=== PATIENT | male | born 1945 | race Caucasian/White ===

== ENCOUNTER 2017-05-05 14:57 | Inpatient (IN) | payer MEDICARE ==
[~2017-05-05] VITALS: Ht 175.3 cm; Wt 103.2 kg
--- NOTE | 2017-05-05 15:08 | NUR ---
The patient, HARI COLORADO, 71 y/o, M admitted by SHARON STAHL MD, was given written information regarding hospital policies, unit procedures and contact persons. Patient admitted to room [address] Stahl's office and arrived at approximately 1500. Valuables were checked and left with patient. Vital signs assessed and IV placed.
[2017-05-05 15:33] VITALS: BP 136/70
[2017-05-05] MEDS ORDERED: ASPI325T8 PO (16:23)
[2017-05-05] MEDS ORDERED: OMEP20CA9 PO (16:23)
[2017-05-05] MEDS ORDERED: NITR1PAT3 TD (16:23)
[2017-05-05] MEDS ORDERED: MULT1TAB13 PO (16:23)
[2017-05-05] MEDS ORDERED: NIAC500T PO (16:23)
[2017-05-05] MEDS ORDERED: ACET650T89 PO (16:23)
[2017-05-05] MEDS ORDERED: FURO40TA4 PO (16:23)
[2017-05-05] MEDS ORDERED: OMEG1CAP38 PO (16:23)
[2017-05-05] MEDS ORDERED: LOSA50TA6 PO (16:23)
[2017-05-05] MEDS ORDERED: NAPR-695 PO ×2 (16:23)
[2017-05-05] MEDS ORDERED: CHOL10003 PO (16:23)
[2017-05-05] MEDS ORDERED: SIMV80TA3 PO (16:23)
[2017-05-05 16:53] LABS: BASO # 0.1 x10^3/uL (0.0-0.2); BASO % 1 % (0-3); EOS # 0.2 x10^3/uL (0.0-0.7); EOS % 2 % (0-3); HEMOGLOBIN 14.6 g/dL (13.0-17.5); LYMPH # 2.2 x10^3/uL (1.0-4.8); LYMPH % 34 % (24-48); MEAN CORPUSCULAR HEMOGLOBIN 30 pg (25-35); MEAN CORPUSCULAR HGB CONC 33 g/dL (31-37); MEAN CORPUSCULAR VOLUME 91 fL (79-100); MONO # 0.7 x10^3/uL (0.0-1.1); MONO % 11 % (0-9); NEUT # 3.4 x10^3uL (1.8-7.7); NEUT % 52 % (31-73); PLATELET COUNT 166 x10^3/uL (140-400); RED BLOOD COUNT 4.83 x10^6/uL (4.30-5.70); RED CELL DISTRIBUTION WIDTH 13.6 % (11.5-14.5); WHITE BLOOD COUNT 6.5 x10^3/uL (4.0-11.0)
[2017-05-05 16:58] LABS: ALBUMIN 3.9 g/dL (3.4-5.0); ALBUMIN/GLOBULIN RATIO 1.3 (1.0-1.7); CREATININE 1.1 mg/dL (0.7-1.3); GFR 65.6; POTASSIUM 4.2 mmol/L (3.5-5.1); TOTAL BILIRUBIN 0.3 mg/dL (0.2-1.0); TOTAL PROTEIN 6.9 g/dL (6.4-8.2)
[2017-05-05 18:04] LABS: BILIRUBIN,URINE NEG (NEG); CLARITY,URINE CLEAR; COLOR,URINE STRAW; GLUCOSE,URINE NEG (NEG); NITRITE,URINE NEG (NEG); UROBILINOGEN,URINE 0.2 mg/dL (0.2 mg/dL)
[2017-05-05 18:05] LABS: BACTERIA,URINE 0 /HPF (0-FEW); WBC,URINE 0 /HPF (0-4)
[2017-05-05] MEDS ORDERED: ZOLPIDEM 5 MG TABLET. PO PRN (18:15)
[2017-05-05] MEDS ORDERED: ACETAMINOPHEN 325 MG TABLET PO PRN (18:45)
[2017-05-05 19:32] VITALS: BP 137/78
[2017-05-05] MEDS: OMEGA-3 FATTY ACIDS/FISH OIL 1,000 MG CAPSULE. PO SCH (20:40)
[2017-05-05] MEDS: FUROSEMIDE 40 MG/4 ML VIAL IVP SCH (20:40)
[2017-05-05] MEDS: NIACIN ER 500 MG TABLET.ER PO SCH (20:40)
[2017-05-05] MEDS ORDERED: SIMVASTATIN 40 MG TABLET. PO SCH (21:00)
[2017-05-05] MEDS ORDERED: ASPIRIN 325 MG TABLET PO SCH (21:00)
[2017-05-05 22:50] VITALS: BP 112/60
[2017-05-06 05:00] VITALS: BP 135/58
[2017-05-06 06:15] LABS: BASO # 0.1 x10^3/uL (0.0-0.2); BASO % 1 % (0-3); EOS # 0.2 x10^3/uL (0.0-0.7); EOS % 4 % (0-3); HEMATOCRIT 44.2 % (39.0-53.0); HEMOGLOBIN 14.7 g/dL (13.0-17.5); LYMPH # 2.4 x10^3/uL (1.0-4.8); LYMPH % 36 % (24-48); MEAN CORPUSCULAR HEMOGLOBIN 30 pg (25-35); MEAN CORPUSCULAR HGB CONC 33 g/dL (31-37); MEAN CORPUSCULAR VOLUME 91 fL (79-100); MONO # 0.8 x10^3/uL (0.0-1.1); MONO % 12 % (0-9); NEUT # 3.1 x10^3uL (1.8-7.7); NEUT % 47 % (31-73); PLATELET COUNT 159 x10^3/uL (140-400); RED BLOOD COUNT 4.88 x10^6/uL (4.30-5.70); RED CELL DISTRIBUTION WIDTH 13.3 % (11.5-14.5); WHITE BLOOD COUNT 6.6 x10^3/uL (4.0-11.0)
[2017-05-06 06:17] LABS: CALCIUM 10.1 mg/dL (8.5-10.1); CREATININE 1.1 mg/dL (0.7-1.3); GFR 65.6; POTASSIUM 4.8 mmol/L (3.5-5.1)
[2017-05-06] MEDS: NIACIN ER 500 MG TABLET.ER PO SCH (08:49)
[2017-05-06] MEDS: OMEGA-3 FATTY ACIDS/FISH OIL 1,000 MG CAPSULE. PO SCH (08:49)
[2017-05-06] MEDS: FUROSEMIDE 40 MG/4 ML VIAL IVP SCH (08:50)
[2017-05-06] MEDS ORDERED: NITROGLYCERIN 0.1MG/HR PATCH. TD SCH (09:00)
[2017-05-06] MEDS ORDERED: PANTOPRAZOLE 40 MG TABLET. PO SCH (09:00)
[2017-05-06] MEDS ORDERED: PNEUMOC CONJ VACC 23-VALENT 0.5 ML VIAL. VAX IM ONE (09:00)
[2017-05-06] MEDS ORDERED: LOSARTAN 50 MG TABLET. PO SCH (09:00)
[2017-05-06] MEDS ORDERED: FUROSEMIDE 40 MG/4 ML VIAL IVP SCH (09:00)
[2017-05-06 10:48] VITALS: BP 153/84
--- NOTE | 2017-05-06 13:57 | CARD ---
APPROVED REPORT EXAM: Two-dimensional and M-mode echocardiogram with Doppler and color Doppler. Other Information Quality : GoodHR: 76bpm Rhythm : NSR INDICATION Congestive Heart Failure RISK FACTORS Obesity 2D DIMENSIONS RVDd3.4 (2.9-3.5cm)Left Atrium(2D)3.6 (1.6-4.0cm) IVSd0.8 (0.7-1.1cm)Aortic Root(2D)2.8 (2.0-3.7cm) LVDd4.6 (3.9-5.9cm)LVOT Diameter2.2 (1.8-2.4cm) PWd0.8 (0.7-1.1cm)LVDs2.8 (2.5-4.0cm) FS (%) 39.4 %SV66.7 ml Aortic Valve AoV Peak Amarjit.177.6cm/sAoV VTI32.3cm AO Peak GR.12.6mmHgLVOT Peak Amarjit.162.7cm/s LVOT VTI 34.60cmAO Mean GR.8mmHg DENIZ (VMAX)3.89wg0BWY (VTI)4.17cm2 Mitral Valve MV E Jqcqziwm77.3cm/sMV E Peak Gr.4mmHg MV DECEL [id number] A Eugbzsim28.8cm/s MV E Mean Gr.2mmHgE/A Ratio0.8 MV A [id number] Pulmonary Valve PV Peak Ukbhgyra321.4cm/sPV Peak Grad.10mmHg Pulmonary Vein S1 Unthlvnn14.7cm/sD2 Xtybjvsq82.4cm/s LEFT VENTRICLE The left ventricle is normal size. There is borderline concentric left ventricular hypertrophy. The l eft ventricular systolic function is normal and the ejection fraction is within normal range. The Eje ction Fraction is 65-70%. There is normal LV segmental wall motion. Transmitral Doppler flow pattern is Grade I-abnormal relaxation pattern. RIGHT VENTRICLE The right ventricle is normal size. There is normal right ventricular wall thickness. The right ventr icular systolic function is normal. ATRIA The left atrium size is normal. The right atrium size is normal. The interatrial septum is intact wit h no evidence for an atrial septal defect or patent foramen ovale as noted on 2-D or Doppler imaging. AORTIC VALVE The aortic valve is mildly sclerotic. The aortic valve is trileaflet. Doppler and Color Flow revealed no significant aortic regurgitation. There is no significant aortic valvular stenosis. MITRAL VALVE Mitral annular calcification is mild. The mitral valve leaflets are thickened. There is no evidence o f mitral valve prolapse. There is no mitral valve stenosis. Doppler and Color Flow revealed trace wil ral valve regurgitation. TRICUSPID VALVE Doppler and Color Flow revealed trace tricuspid valve regurgitation. PULMONIC VALVE The pulmonic valve is not well visualized but appears to open well. No evidence of pulmonic valve reg urgitation or stenosis by color and spectral Doppler. GREAT VESSELS The aortic root is normal in size. The ascending aorta is normal in size. The pulmonary artery is nor mal. The IVC is normal in size and collapses >50% with inspiration. PERICARDIAL EFFUSION There is no evidence of significant pericardial effusion. Critical Notification Critical Value: No <Conclusion> The left ventricle is normal size. The left ventricular systolic function is normal and the ejection fraction is within normal range. The Ejection Fraction is 65-70%. There is borderline concentric left ventricular hypertrophy. There is no significant aortic valvular stenosis. Doppler and Color Flow revealed no significant aortic regurgitation. Doppler and Color Flow revealed trace mitral valve regurgitation. Doppler and Color Flow revealed trace tricuspid valve regurgitation. There is no evidence of significant pericardial effusion.
[2017-05-06 14:50] VITALS: BP 132/80
== END 2017-05-06 15:39 | disposition home or self-care (01) | DRG 293 ==
LOC: 1 SOUTH 14:57
PROVIDERS: ADMIT Family Medicine; ATTEND Family Medicine
DX: I50.43 Acute on chronic combined systolic (congestive) and diastolic (congestive) heart failure (principal); G47.30 Sleep apnea, unspecified; I25.10 Atherosclerotic heart disease of native coronary artery without angina pectoris; Z79.899 Other long term (current) drug therapy; Z79.82 Long term (current) use of aspirin; Z95.5 Presence of coronary angioplasty implant and graft; Z91.048 Other nonmedicinal substance allergy status; Z80.9 Family history of malignant neoplasm, unspecified
CPT/HCPCS: 36415; 80048; 80053; 81001; 82550; 83880; 84484; 85027; 85379; 90732; 93306; J1940

== ENCOUNTER → 2017-09-02 | Outpatient (CLI) | payer MEDICARE ==
[~2017-09-02] MED LIST: ACET650T89 PO; ASPI325T8 PO; CHOL10003 PO; FURO40TA4 PO; LOSA50TA6 PO; MULT1TAB13 PO; NAPR-695 PO; NIAC500T PO; NITR1PAT3 TD; OMEG1CAP38 PO; OMEP20CA9 PO; SIMV80TA3 PO
[2017-09-02 13:37] LABS: BASO # 0.1 x10^3/uL (0.0-0.2); BASO % 1 % (0-3); EOS # 0.2 x10^3/uL (0.0-0.7); EOS % 2 % (0-3); HEMOGLOBIN 15.5 g/dL (13.0-17.5); LYMPH # 2.4 x10^3/uL (1.0-4.8); LYMPH % 26 % (24-48); MEAN CORPUSCULAR HEMOGLOBIN 31 pg (25-35); MEAN CORPUSCULAR HGB CONC 34 g/dL (31-37); MEAN CORPUSCULAR VOLUME 90 fL (79-100); MONO # 0.8 x10^3/uL (0.0-1.1); MONO % 9 % (0-9); NEUT # 5.9 x10^3uL (1.8-7.7); NEUT % 63 % (31-73); PLATELET COUNT 204 x10^3/uL (140-400); RED BLOOD COUNT 5.02 x10^6/uL (4.30-5.70); RED CELL DISTRIBUTION WIDTH 13.5 % (11.5-14.5); WHITE BLOOD COUNT 9.2 x10^3/uL (4.0-11.0)
[2017-09-02 13:41] LABS: CALCIUM 10.3 mg/dL (8.5-10.1); GFR 73.2; POTASSIUM 4.1 mmol/L (3.5-5.1)
== END | disposition home or self-care (01) ==
LOC: LAB 12:57
PROVIDERS: ATTEND Family Medicine
DX: R04.0 Epistaxis (principal)
CPT/HCPCS: 36415; 80048; 85025; 85610

== ENCOUNTER 2021-05-06 17:50 | Inpatient (IN) | payer MEDICARE ==
[~2021-05-06] VITALS: Ht 172.7 cm; Wt 86.2 kg
[~2021-05-06 17:50] MED LIST changes: +ACET650T6 PO; -ACET650T89 PO; -LOSA50TA6 PO; +LOSA50TA86 PO; +OMEP20CA16 PO; -OMEP20CA9 PO; +SIMV80TA17 PO; -SIMV80TA3 PO
[2021-05-06 18:34] VITALS: BP 117/81
[2021-05-06] MEDS ORDERED: ZOLPIDEM 5 MG TABLET. PO PRN (18:45)
[2021-05-06] MEDS ORDERED: ACETAMINOPHEN 500 MG TABLET PO PRN (18:45)
[2021-05-06] MEDS ORDERED: FUROSEMIDE 20 MG/2 ML VIAL IVP ONE (18:45)
[2021-05-06] MEDS ORDERED: ACETAMINOPHEN 325 MG TABLET PO PRN (18:45)
[2021-05-06 19:03] LABS: BASO # 0.1 x10^3/uL (0.0-0.2); BASO % 1 % (0-3); EOS # 0.4 x10^3/uL (0.0-0.7); EOS % 4 % (0-3); HEMATOCRIT 36.4 % (39.0-53.0); HEMOGLOBIN 11.7 g/dL (13.0-17.5); LYMPH # 1.5 x10^3/uL (1.0-4.8); LYMPH % 15 % (24-48); MEAN CORPUSCULAR HEMOGLOBIN 26 pg (25-35); MEAN CORPUSCULAR HGB CONC 32 g/dL (31-37); MEAN CORPUSCULAR VOLUME 80 fL (79-100); MONO % 10 % (0-9); NEUT # 7.2 x10^3uL (1.8-7.7); NEUT % 70 % (31-73); PLATELET COUNT 324 x10^3/uL (140-400); RED BLOOD COUNT 4.52 x10^6/uL (4.30-5.70); RED CELL DISTRIBUTION WIDTH 15.1 % (11.5-14.5); WHITE BLOOD COUNT 10.2 x10^3/uL (4.0-11.0)
[2021-05-06 19:22] LABS: ALBUMIN 2.7 g/dL (3.4-5.0); ALBUMIN/GLOBULIN RATIO 0.7 (1.0-1.7); CALCIUM 9.8 mg/dL (8.5-10.1); CREATININE 0.9 mg/dL (0.7-1.3); GFR 81.8; MAGNESIUM 2.1 mg/dL (1.8-2.4); POTASSIUM 4.1 mmol/L (3.5-5.1); TOTAL BILIRUBIN 0.2 mg/dL (0.2-1.0); TOTAL PROTEIN 6.7 g/dL (6.4-8.2)
--- NOTE | 2021-05-06 20:12 | RAD ---
PQRS Compliance Statement: One or more of the following individualized dose reduction techniques were utilized for this examinat ion: 1. Automated exposure control 2. Adjustment of the mA and/or kV according to patient size 3. Use of iterative reconstruction technique CT THORAX WO 05/06/2021 7:00 PM Indication: Shortness of breath COMPARISON: None available. TECHNIQUE: Multiple axial CT images of the chest were obtained without intravenous contrast. Coronal and sagittal reformats are provided. FINDINGS: Ascending thoracic aorta measures 4.1 cm. Heart size within normal limits. Three-vessel coronary monroe ry vascular calcific effusions are present. Thyroid gland is normal in appearance. Limited evaluation for hilar lymphadenopathy without intravenous contrast. No pathologically enlarged mediastinal or ax illary lymph nodes. There is a moderate to large left pleural effusion with atelectasis of the inferi or lingula and left lower lobe. There is minimal aeration left upper lobe. No pneumothorax. There is a 3 mm subpleural solid noncalcified pulmonary nodule in the right lower lobe (series 2, image 37). U pper abdomen is normal in appearance. No suspicious osseous abnormality is identified. Anterior cervi brandon discectomy and fusion hardware is partially profiled. IMPRESSION: Moderate to large left pleural effusion with adjacent inferior lingula atelectasis and left lower lob e atelectasis or infiltrate. 3 mm solid subpleural nodule in the right lower lobe. Fleischner guidelines for incidentally detected pulmonary nodules suggests no routine follow-up for low risk patients and optional CT at 12 months f or high risk patients with solid noncalcified pulmonary nodules less than 6 mm in size. Ectasia of the ascending thoracic aorta measures 4.1 cm. Electronically signed by: Gay Jessica MD (05/06/2021 8:09 PM) [facility]
[2021-05-06] MEDS: ASPIRIN 325 MG TABLET PO SCH (20:18)
[2021-05-06 22:13] LABS: BILIRUBIN,URINE NEG (NEG); CLARITY,URINE CLEAR; COLOR,URINE STRAW; GLUCOSE,URINE NEG (NEG)
[2021-05-06 22:14] LABS: BACTERIA,URINE 0 /HPF (0-FEW); NITRITE,URINE NEG (NEG); SQUAMOUS EPITHELIAL CELL,UR FEW /LPF; UROBILINOGEN,URINE 0.2 mg/dL (0.2 mg/dL); WBC,URINE 0 /HPF (0-4)
[2021-05-07 06:10] VITALS: BP 126/77
[2021-05-07] MEDS ORDERED: DEXTROSE 50% 25 GM / 50ML DISP.SYRIN. IV PRN (07:45)
[2021-05-07] MEDS: LOSARTAN 50 MG TABLET. PO SCH (08:27)
[2021-05-07] MEDS: CHOLECALCIFEROL (VITAMIN D3) 1,000 UNIT TABLET PO SCH (08:27)
[2021-05-07] MEDS: PANTOPRAZOLE 40 MG TABLET. PO SCH (08:27)
[2021-05-07] MEDS: NITROGLYCERIN 0.1MG/HR PATCH. TD SCH (08:30)
[2021-05-07] MEDS: INSULIN LISPRO 300 UNITS/3 ML VIAL. SQ SCH ×3 (08:31→16:59)
[2021-05-07] MEDS ORDERED: FUROSEMIDE 20 MG/2 ML VIAL IVP SCH ×2 (09:00)
[2021-05-07] MEDS ORDERED: FUROSEMIDE 20 MG/2 ML VIAL IVP ONE (09:30)
[2021-05-07 10:28] VITALS: BP 148/82
[2021-05-07 15:05] VITALS: BP 128/75
[2021-05-07 19:00] VITALS: BP 125/81
[2021-05-07] MEDS: ASPIRIN 325 MG TABLET PO SCH (20:54)
[2021-05-07 23:00] VITALS: BP 137/79
[2021-05-07 23:22] LABS: HEMOGLOBIN A1C 7.2 % (4.8-5.6)
[2021-05-08 05:52] VITALS: BP 122/83
[2021-05-08] MEDS: INSULIN LISPRO 300 UNITS/3 ML VIAL. SQ SCH ×3 (08:00→17:58)
[2021-05-08] MEDS: LACTOBACILLUS RHAMNOSUS GG 1 CAPSULE. PO SCH ×2 (09:25→21:09)
[2021-05-08] MEDS: PANTOPRAZOLE 40 MG TABLET. PO SCH (09:25)
[2021-05-08] MEDS: CHOLECALCIFEROL (VITAMIN D3) 1,000 UNIT TABLET PO SCH (09:25)
[2021-05-08] MEDS: LOSARTAN 50 MG TABLET. PO SCH (09:25)
[2021-05-08] MEDS: NITROGLYCERIN 0.1MG/HR PATCH. TD SCH (09:26)
[2021-05-08] MEDS: FUROSEMIDE 20 MG/2 ML VIAL IVP SCH (09:27)
[2021-05-08 11:43] VITALS: BP 121/78
[2021-05-08 14:37] VITALS: BP 113/70
[2021-05-08 18:53] VITALS: BP 117/74
[2021-05-08] MEDS: ASPIRIN 325 MG TABLET PO SCH (21:09)
[2021-05-08 22:54] VITALS: BP 109/69
--- NOTE | 2021-05-09 00:36 | PN ---
SUBJECTIVE: A 75-year-old male who came in with a large left pleural effusion, difficulty breathing and elevated temperature, continues to run low-grade temperature about 99.7, pulse upwards of close to 100, blood pressure 125/80, respiratory 18, only 91% on room air and that is without exertion. The patient otherwise seems to be doing a little bit better, but still coughing, feels heaviness in that left side of his chest. Blood sugars are being monitored carefully and continue on IV Lasix as well as IV antibiotic therapy. OBJECTIVE: LUNGS: Otherwise show good inflation on the right, but the left shows diminished breath sounds. CARDIOVASCULAR: Regular sinus rhythm. ABDOMEN: Otherwise protuberant. EXTREMITIES: No clubbing, cyanosis or edema. Continue on the IV Rocephin and make further evaluation on him as indicated once we get the tap done for thoracentesis. IMPRESSION: Left pleural effusion, probably infectious. Continue with IV antibiotic therapy and diuresis for now. BINTA/NELLA/LAYTON DR: Giacomo TID: [id number]
[2021-05-09 05:57] VITALS: BP 111/51
[2021-05-09] MEDS: INSULIN LISPRO 300 UNITS/3 ML VIAL. SQ SCH ×3 (08:00→16:51)
[2021-05-09] MEDS: FUROSEMIDE 20 MG/2 ML VIAL IVP SCH (08:24)
[2021-05-09] MEDS: PANTOPRAZOLE 40 MG TABLET. PO SCH (08:25)
[2021-05-09] MEDS: LOSARTAN 50 MG TABLET. PO SCH (08:25)
[2021-05-09] MEDS: CHOLECALCIFEROL (VITAMIN D3) 1,000 UNIT TABLET PO SCH (08:25)
[2021-05-09] MEDS: LACTOBACILLUS RHAMNOSUS GG 1 CAPSULE. PO SCH ×2 (08:25→20:34)
[2021-05-09] MEDS: NITROGLYCERIN 0.1MG/HR PATCH. TD SCH (08:27)
[2021-05-09 11:04] VITALS: BP 137/75
[2021-05-09 12:28] LABS: CALCIUM 9.7 mg/dL (8.5-10.1); CREATININE 0.9 mg/dL (0.7-1.3); GFR 81.8; POTASSIUM 3.9 mmol/L (3.5-5.1)
[2021-05-09 13:36] VITALS: BP 128/76
[2021-05-09] MEDS: METOPROLOL SUCC 24HR ER 25 MG TAB.ER.24H. PO SCH (13:37)
--- NOTE | 2021-05-09 13:41 | RAD ---
EXAM: PA and Lateral Views of the Chest DATE: 05/09/2021 12:30 PM INDICATION: Reason: effusion / Spl. Instructions: / History: COMPARISON: 05/06/2021 FINDINGS/ IMPRESSION: Large left pleural effusion. No pneumothorax. Left lung opacities likely atelectasis given the large left pleural effusion. Cardiomediastinal silhouette is likely stable. Electronically signed by: Marky Diaz MD (05/09/2021 1:39 PM) [facility]ICCO
[2021-05-09 14:41] VITALS: BP 113/69
[2021-05-09 18:50] VITALS: BP 117/71
[2021-05-09] MEDS: PROMETH/CODEINE 6.25/10MG 5 ML SYRUP. PO PRN (20:34)
[2021-05-09 23:00] VITALS: BP 110/64
[2021-05-10 05:36] VITALS: BP 116/75
[2021-05-10] MEDS: INSULIN LISPRO 300 UNITS/3 ML VIAL. SQ SCH ×3 (08:00→16:32)
[2021-05-10] MEDS: FUROSEMIDE 20 MG/2 ML VIAL IVP SCH (08:39)
[2021-05-10] MEDS: LACTOBACILLUS RHAMNOSUS GG 1 CAPSULE. PO SCH ×2 (08:39→20:04)
[2021-05-10] MEDS: CHOLECALCIFEROL (VITAMIN D3) 1,000 UNIT TABLET PO SCH (08:40)
[2021-05-10] MEDS: METOPROLOL SUCC 24HR ER 25 MG TAB.ER.24H. PO SCH (08:40)
[2021-05-10] MEDS: PANTOPRAZOLE 40 MG TABLET. PO SCH (08:40)
[2021-05-10] MEDS: LOSARTAN 50 MG TABLET. PO SCH (08:40)
[2021-05-10] MEDS: NITROGLYCERIN 0.1MG/HR PATCH. TD SCH (08:41)
[2021-05-10 10:35] VITALS: BP 121/71
--- NOTE | 2021-05-10 12:07 | PN ---
DATE: 05/09/2021 SUBJECTIVE: The patient came in with pleural effusion, shortness of breath and dyspnea. The patient seems to be doing a little bit better today. He has been diuresed vigorously with IV Lasix, also placed on IV antibiotic therapy because of his elevated temperature. The repeat chest x-ray shows a pleural effusion to be increasing in size and will try to be tapped up tomorrow and make further evaluation once that tap has been performed. Otherwise the patient is resting comfortably. OBJECTIVE: VITAL SIGNS: Blood pressure 140/70, respiratory rate 20, pulse 65, 97% on room air, 98.5 temperature. GENERAL: The patient is alert and oriented. LUNGS: Diminished, primarily on the left side. There is no air movement, although he is not struggling for air. No accessory muscle use, although he has have a marked decreased percussion on the left side. CARDIOVASCULAR: Regular sinus rhythm. ABDOMEN: Soft, nontender. EXTREMITIES: No clubbing, cyanosis. Trace edema. NEUROLOGIC: His speech is fluent, spontaneous, and appropriate throughout. BINTA/LOUIS/ZACHARY DR: Giacomo TID: [id number]
--- NOTE | 2021-05-10 13:07 | RAD ---
US THORACENTESIS LOCAL LEFT History:Reason: LEFT PL EFFUSION / Spl. Instructions: / History: Comparison: None Technique: After discussing the risk and benefits of the procedure, the patient signed a written cons ent form for ultrasound guided thoracentesis of left pleural effusion. Appropriate relevant laborator y findings were reviewed prior to the exam. Initial ultrasound examination of the left hemithorax dem onstrated the presence of a left pleural effusion. External skin site was prepped and draped in the u sual sterile fashion at the planned site of access. ChloraPrep was utilized for cleansing solution. 1 % percent lidocaine was utilized for local anesthesia. 5 Kazakh Yueh needle set was utilized to acces s the pleural effusion. Subsequently fluid was aspirated utilizing vacuum bottles. A total of approxi mately 1.5 liters of serosanguineous fluid removed. Catheter was removed. There were no immediate com plications. Findings: There was alan red pleural fluid. Impression: 1. Successful ultrasound-guided left thoracentesis without immediate complication. Electronically signed by: Maury Taylor DO (05/10/2021 1:05 PM) [id number]
[2021-05-10 14:55] VITALS: BP 120/73
[2021-05-10 18:49] VITALS: BP 125/75
[2021-05-10] MEDS: PROMETH/CODEINE 6.25/10MG 5 ML SYRUP. PO PRN (20:04)
--- NOTE | 2021-05-10 23:42 | PN ---
SUBJECTIVE: The patient is a 75-year-old male in with large left lobe pleural effusion. The patient had a successful thoracentesis, 1-1/2 liters of fluid taken off that lung. OBJECTIVE: VITAL SIGNS: Remain stable 120/70, respiratory rate 18, pulse 80, afebrile, 2 liters at 93%. The patient continues to be monitored. We will repeat chest x-ray to see how this has evolved and what other cultures and sensitivities on the chemistries from the fluid need to be evaluated as well as cell count and other parameters as indicated. IMPRESSION: Large left pleural effusion, pleurisy, type 2 diabetes. PLAN: As above. Continue on antibiotics for now until final cultures were obtained for now. BINTA/MANUELA DR: Giacomo TID: [id number]
[2021-05-11 00:11] VITALS: BP 132/81
[2021-05-11 06:01] VITALS: BP 110/60
--- NOTE | 2021-05-11 07:27 | EKG ---
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
[2021-05-11] MEDS: INSULIN LISPRO 300 UNITS/3 ML VIAL. SQ SCH ×3 (07:44→16:24)
[2021-05-11] MEDS: CHOLECALCIFEROL (VITAMIN D3) 1,000 UNIT TABLET PO SCH (08:02)
[2021-05-11] MEDS: LACTOBACILLUS RHAMNOSUS GG 1 CAPSULE. PO SCH (08:02)
[2021-05-11] MEDS: METOPROLOL SUCC 24HR ER 25 MG TAB.ER.24H. PO SCH (08:02)
[2021-05-11] MEDS: PANTOPRAZOLE 40 MG TABLET. PO SCH (08:02)
[2021-05-11] MEDS: NITROGLYCERIN 0.1MG/HR PATCH. TD SCH (08:03)
[2021-05-11] MEDS: FUROSEMIDE 20 MG/2 ML VIAL IVP SCH (08:04)
[2021-05-11] MEDS: LOSARTAN 50 MG TABLET. PO SCH (08:05)
[2021-05-11] MEDS: PROMETH/CODEINE 6.25/10MG 5 ML SYRUP. PO PRN (09:28)
--- NOTE | 2021-05-11 10:36 | RAD ---
EXAM: CHEST 2 VIEWS. HISTORY: Cough, pleural effusion. COMPARISON: 05/09/2021. FINDINGS: Frontal and lateral views of the chest are obtained. A moderate left pleural effusion is decreased since the prior study. There is no pneumothorax. There is atelectasis in the left greater than right bases. The inspiration is small. The heart is not enlar ged. There are atherosclerotic calcifications of the aorta. Changes of cervical fusion are noted. IMPRESSION: 1. A moderate left pleural effusion has decreased since the prior study. Electronically signed by: Dominguez Stratton MD (05/11/2021 10:33 AM) [id number]
[2021-05-11 10:55] VITALS: BP 121/66
[2021-05-11 14:43] VITALS: BP 105/67
--- NOTE | 2021-05-11 21:57 | PN ---
SUBJECTIVE: The patient is a 75-year-old gentleman came in with a pleural effusion, shortness of breath, and dyspnea. The patient is resting comfortably, although he had a 1 liter and a half of fluid taken off his left lung. The patient has a reoccurrence of that pleural effusion. The patient is still moderate amount. OBJECTIVE: VITAL SIGNS: Blood pressure 120/60, respiratory rate 20, pulse 83, afebrile, 92 on room air. GENERAL: The patient otherwise alert and oriented. LUNGS: Diminished. On the left, there is no movement of air, primarily from about snf down on the left lung. CVR exam has good movement of air. CARDIOVASCULAR: Regular sinus rhythm. ABDOMEN: Soft, protuberant. EXTREMITIES: No clubbing, cyanosis or edema. NEUROLOGIC: The patient alert and oriented x3. IMPRESSION AND PLAN: Recurrent pleural effusion. The cultures and workup on that fluid taken out yesterday are still pending, but because this fluid has reoccurred in a moderate amount, he is probably filling up again, be transferred for pulmonary consult down at [facility]. ROBEL COSTA: Giacomo TID: [id number]
--- NOTE | 2021-05-17 20:55 | DS ---
DATE OF DISCHARGE: 05/11/2021 HOSPITAL COURSE: A 75-year-old gentleman with left-sided chest pain, shortness of breath. The patient has been having problems with a recurrent pleural effusion. The patient also has pleurisy, type 2 diabetes, history of coronary artery disease. The patient had approximately a liter and a half of fluid drawn off and then began to have experience further buildup of the fluid. As a result of this, recurrence of the pleural effusion, the patient was sent to [facility] to be seen by Pulmonology and make further evaluation on him for the results of further testing as indicated. His white count was 10, hemoglobin 36, platelets 328. The patient's body source of the pleural effusion, glucose 126, total protein 4.5, albumin 2.6, LDH 272. Amylase 25 and creatinine of 0.8. The patient was stable at the time of discharge because there was no clinical transformation specialist available for further consultation. He was transferred down to [facility]. IMPRESSION: 1. Recurrent pleural effusion. 2. Dyspnea. 3. Chest pain. 4. Pleurisy. 5. Type 2 diabetes. 6. Morbid obesity. 7. Weight loss. DISPOSITION: The patient will be transferred via EMS as indicated above. ORTIZ DR: Giacomo TID: [id number]
== END 2021-05-11 15:49 | disposition short-term general hospital (02) | DRG 186 ==
LOC: 1 SOUTH 17:50
PROVIDERS: ADMIT Family Medicine; ATTEND Family Medicine
PROC: 0W9B3ZZ Drainage of Left Pleural Cavity, Percutaneous Approach (ICD-10-PCS; principal; 2021-05-10)
DX: J90 Pleural effusion, not elsewhere classified (principal); E43 Unspecified severe protein-calorie malnutrition; I25.10 Atherosclerotic heart disease of native coronary artery without angina pectoris; E11.9 Type 2 diabetes mellitus without complications; Z68.29 Body mass index [BMI] 29.0-29.9, adult; E66.01 Morbid (severe) obesity due to excess calories; Z98.61 Coronary angioplasty status; Z95.828 Presence of other vascular implants and grafts
CPT/HCPCS: 32555; 36415; 71046; 71250; 80048; 80053; 81001; 82042; 82150; 82550; 82570; 82945; 82947; 83036; 83615; 83735; 83880; 84157; 84484; 85025; 85049; 85610; 85730; 87071; 87075; 93005; J0696; J1815

== ENCOUNTER → 2021-05-31 | Outpatient (CLI) | payer MEDICARE ==
[2021-05-11 14:43] VITALS: BP 105/67
[2021-05-31 14:10] LABS: BASO # 0.1 x10^3/uL (0.0-0.2); BASO % 1 % (0-3); EOS # 0.3 x10^3/uL (0.0-0.7); EOS % 3 % (0-3); HEMATOCRIT 37.6 % (39.0-53.0); HEMOGLOBIN 11.9 g/dL (13.0-17.5); LYMPH # 1.8 x10^3/uL (1.0-4.8); LYMPH % 16 % (24-48); MEAN CORPUSCULAR HEMOGLOBIN 26 pg (25-35); MEAN CORPUSCULAR HGB CONC 32 g/dL (31-37); MEAN CORPUSCULAR VOLUME 81 fL (79-100); MONO # 1.3 x10^3/uL (0.0-1.1); MONO % 12 % (0-9); NEUT # 7.9 x10^3uL (1.8-7.7); NEUT % 69 % (31-73); PLATELET COUNT 339 x10^3/uL (140-400); RED BLOOD COUNT 4.64 x10^6/uL (4.30-5.70); RED CELL DISTRIBUTION WIDTH 15.6 % (11.5-14.5); WHITE BLOOD COUNT 11.5 x10^3/uL (4.0-11.0)
== END ==
LOC: LAB 12:26
PROVIDERS: ATTEND Family Medicine
DX: D62 Acute posthemorrhagic anemia (principal)
CPT/HCPCS: 36415; 85025; 85610; 85730

== ENCOUNTER → 2021-07-26 | Outpatient (CLI) | payer MEDICARE ==
--- NOTE | 2021-07-26 17:11 | RAD ---
EXAMINATION: US DPLX VENOUS EXTREMITY UPPER RT (UPPER EXTREMITY VENOUS ULTRASOUND) CLINICAL HISTORY: Right upper extremity pain TECHNIQUE: Sonographic grayscale images obtained of the right upper extremity deep venous system with color flow Doppler, compression, and augmentation techniques as indicated. Images obtained and stor ed in a permanent archive. COMPARISON: None FINDINGS: No evidence of absent flow or incompressibility within the internal jugular, subclavian, axillary, an d brachial veins. Visualized radial and ulnar veins appear patent on limited evaluation. No evidence of absent flow or incompressibility within the superficial basilic and cephalic veins. IMPRESSION: No evidence of right upper extremity DVT. Electronically signed by: Serg Mejia DO (07/26/2021 5:09 PM) [id number]
== END ==
LOC: US 16:14
PROVIDERS: ATTEND Family Medicine
DX: M79.601 Pain in right arm (principal)
CPT/HCPCS: 93971

== ENCOUNTER → 2021-09-02 | Day surgery (SDC) | payer MEDICARE ==
[~2021-09-02] MED LIST changes: +gabapentin PO; +iron PO; +probiotic
[2021-09-02 11:12] VITALS: BP 127/66
== END | disposition home or self-care (01) ==
LOC: SURG 10:54
PROVIDERS: ATTEND Anesthesiology
DX: M54.2 Cervicalgia (principal); M54.12 Radiculopathy, cervical region; I11.0 Hypertensive heart disease with heart failure; I50.9 Heart failure, unspecified; I25.10 Atherosclerotic heart disease of native coronary artery without angina pectoris; E78.00 Pure hypercholesterolemia, unspecified; M19.90 Unspecified osteoarthritis, unspecified site; Z79.899 Other long term (current) drug therapy; Z98.890 Other specified postprocedural states; Z80.3 Family history of malignant neoplasm of breast
CPT/HCPCS: 99204; G0463

== ENCOUNTER → 2021-10-06 | Day surgery (SDC) | payer MEDICARE ==
[~2021-10-06] MED LIST changes: +CYCL10TA19 PO; +PEMB100V IV; +PROP8DRO2 OP; +TRAM50TA PO; +colace; +metamucil; +trubiotics
[2021-10-06 11:48] VITALS: BP 127/71
== END | disposition home or self-care (01) ==
LOC: SURG 11:27
PROVIDERS: ATTEND Anesthesiology
DX: M54.2 Cervicalgia (principal); M54.12 Radiculopathy, cervical region; I10 Essential (primary) hypertension; Z79.899 Other long term (current) drug therapy; Z98.890 Other specified postprocedural states; Z88.8 Allergy status to other drugs, medicaments and biological substances
CPT/HCPCS: 99214; G0463

== ENCOUNTER 2021-10-15 13:33 | Emergency (ER) | payer MEDICARE ==
[~2021-10-15] VITALS: Ht 172.7 cm; Wt 86.2 kg
--- NOTE | 2021-10-15 14:22 | RAD ---
EXAMINATION: CT head and cervical spine without IV contrast. INDICATION:76 years, Male, fall. COMPARISON: None TECHNIQUE: Spiral acquisition of contiguous images from the skull base to the vertex were obtained. C T of the cervical spine was obtained using contiguous spiral imaging from the skull base to the upper thoracic level. Sagittal and coronal 2D reformatted series were provided by the technologist. Soft t issue and bone window algorithms were reviewed. Exposure: One or more of the following individualized dose reduction techniques were utilized for thi s examination: 1. Automated exposure control 2. Adjustment of the mA and/or kV according to patient size 3. Use of iterative reconstruction technique. FINDINGS: CT HEAD: Moderate brain parenchymal volume loss. Supratentorial periventricular white matter hypodensities, in determinate but most likely representing chronic microangiopathic disease. Neither mass, midline shif t, intracranial hemorrhage, acute/subacute ischemic changes, nor extraaxial fluid collections are see n. The paranasal sinuses, mastoid air cells, and middle ears are clear. The orbital contents appear within normal limits. Small midline occipital scalp hematoma. CT CERVICAL SPINE: Laminectomy changes of C1-C4. Posterior hardware fusion of C1-C5. Anterior hardware fusion of C4, C5 and C6. Osseous fusion of the C4-C5 and C5-C6 vertebrae. Grade 1 anterolisthesis of the 3 over C4. Ne ither fracture, subluxation, nor traumatic spondylolisthesis is seen. The vertebral body heights are preserved. Severe multilevel degenerative changes with disc space narrowing, osteophytes, bilateral f acet and uncovertebral arthropathy. There is no evidence of a large intraspinal hematoma. The prevert ebral and paravertebral soft tissues are within normal limits. Venous catheter seen in the right inte rnal jugular vein. IMPRESSION: 1. No acute intracranial abnormality. 2. Small midline occipital scalp hematoma. 3. No acute fracture of the cervical spine. Electronically signed by: Kera Khan MD (10/15/2021 2:19 PM) MELVA
--- NOTE | 2021-10-15 14:25 | PHYS DOC ---
Past History Additional Past Medical Histor: Lung Cancer (NORBERT ROWAN APRN) Past Surgical History: Cervical Fusion, Tonsillectomy (NORBERT ROWAN APRN) Alcohol Use: None (NORBERT ROWAN APRN) General Adult EDM: Chief Complaint: ABRASION HPI: HPI: Patient is a 76-year-old male who presents to the emergency department following a fall via EMS. Patient reports that he was standing outside when he tripped and fell hitting the back of his head on his 's fender of her vehicle. He denies loss of consciousness. He denies any current pain. He is reporting an abrasion to the back of his head. He denies any neck or back pain, nausea, vomiting, blood thinner use. He states that his tetanus is up-to-date. Patient presents to the emergency department in a cervical collar. He reports that he had a disc fusion in his cervical spine by Dr. Velez at [facility] on September 24. (NORBERT ROWAN APRN) Review of Systems: Review of Systems: Constitutional: negative unless reported in HPI Eyes: negative unless reported in HPI HENT: negative unless reported in HPI Respiratory: negative unless reported in HPI Cardiovascular: negative unless reported in HPI GI: negative unless reported in HPI : negative unless reported in HPI Musculoskeletal: negative unless reported in HPI Integument: negative unless reported in HPI Neurologic: negative unless reported in HPI Endocrine: negative unless reported in HPI Lymphatic: negative unless reported in HPI Psychiatric: negative unless reported in HPI (NORBERT ROWAN APRN) Allergies: Allergies: Allergies Coded Allergies Type Severity Reaction Last Updated Verified adhesive tape Allergy Unknown 10/06/21 Yes (NORBERT ROWAN APRN) Physical Exam: PE: Constitutional: Well developed, well nourished, no acute distress, non-toxic appearance. [] HENT: Normocephalic, abrasion noted to posterior aspect of head with active bleeding, bilateral external ears normal, oropharynx moist, no oral exudates, nose normal. [] Eyes: PERRL, EOMI, conjunctiva normal, no discharge. [] Neck: Normal range of motion, no tenderness, neck in cervical collar, supple, no stridor. [] Cardiovascular:Heart rate regular rhythm, no murmur [] Lungs & Thorax: Bilateral breath sounds clear to auscultation [] Abdomen: Bowel sounds normal, soft, no tenderness, no masses, no pulsatile masses. [] Skin: Warm, dry, no erythema, no rash. [] Back: No tenderness, normal range of motion Extremities: No tenderness, no cyanosis, no clubbing, ROM intact, no edema, no pain with palpation of major joints in upper and lower extremities. [] Neurologic: Alert and oriented X 3, normal motor function, normal sensory function, no focal deficits noted. [] Psychologic: Affect normal, judgement normal, mood normal. [] (NORBERT ROWAN APRN) Current Patient Data: Vital Signs: Vital Signs Date Time Temp Pulse Resp B/P (MAP) Pulse Ox O2 Delivery O2 Flow Rate FiO2 10/15/21 13:35 97.6 102 16 122/85 (97) 96 (NORBERT ROWAN APRN) EKG: EKG: [] (NORBERT ROWAN APRN) Radiology/Procedures: Radiology/Procedures: []REASON: fall PROCEDURE: CT HEAD AND CERVICAL SPINE WO EXAMINATION: CT head and cervical spine without IV contrast. INDICATION:76 years, Male, fall. COMPARISON: None TECHNIQUE: Spiral acquisition of contiguous images from the skull base to the vertex were obtained. CT of the cervical spine was obtained using contiguous spiral imaging from the skull base to the upper thoracic level. Sagittal and coronal 2D reformatted series were provided by the technologist. Soft tissue and bone window algorithms were reviewed. Exposure: One or more of the following individualized dose reduction techniques were utilized for this examination: 1. Automated exposure control 2. Adjustment of the mA and/or kV according to patient size 3. Use of iterative reconstruction technique. FINDINGS: CT HEAD: Moderate brain parenchymal volume loss. Supratentorial periventricular white matter hypodensities, indeterminate but most likely representing chronic microangiopathic disease. Neither mass, midline shift, intracranial hemorrhage, acute/subacute ischemic changes, nor extraaxial fluid collections are seen. The paranasal sinuses, mastoid air cells, and middle ears are clear. The orbital contents appear within normal limits. Small midline occipital scalp hematoma. CT CERVICAL SPINE: Laminectomy changes of C1-C4. Posterior hardware fusion of C1-C5. Anterior hardware fusion of C4, C5 and C6. Osseous fusion of the C4-C5 and C5-C6 vertebrae. Grade 1 anterolisthesis of the 3 over C4. Neither fracture, subluxa tion, nor traumatic spondylolisthesis is seen. The vertebral body heights are preserved. Severe multilevel degenerative changes with disc space narrowing, osteophytes, bilateral facet and uncovertebral arthropathy. There is no evidence of a large intraspinal hematoma. The prevertebral and paravertebral soft tissues are within normal limits. Venous catheter seen in the right internal jugular vein. IMPRESSION: 1. No acute intracranial abnormality. 2. Small midline occipital scalp hematoma. 3. No acute fracture of the cervical spine. Electronically signed by: Arabella Khan MD (10/15/2021 2:19 PM) [facility] DICTATED AND SIGNED BY: ARABELLA KHAN MD DATE: 10/15/211410 CC: SHARON STAHL MD; NORBERT ROWAN APRN ~MTH0 0 (NORBERT ROWAN APRN) Heart Score: C/O Chest Pain: N/A Risk Factors: Risk Factors: DM, Current or recent (<one month) smoker, HTN, HLP, family history of CAD, obesity. Risk Scores: Score 0 - 3: 2.5% MACE over next 6 weeks - Discharge Home Score 4 - 6: 20.3% MACE over next 6 weeks - Admit for Clinical Observation Score 7 - 10: 72.7% MACE over next 6 weeks - Early Invasive Strategies (NORBERT ROWAN APRN) Course & Med Decision Making: Course & Med Decision Making Pertinent Labs and Imaging studies reviewed. (See chart for details) [] Patient presents to the emergency department following a fall. He has an abrasion noted to the posterior aspect of his head is cleansed and a dressing was placed, this does not require any sutures as it is a skin tear. educated on wound care. Imaging was performed of patient's head and neck that showed no acute findings. Patient's tetanus is up-to-date. Patient advised to continue wearing his c-collar and take Tylenol for his pain. I discussed with patient all findings and diagnostic testing as well as the need to follow-up with PCP for further evaluation and treatment or return to the ER if any new or worsening symptoms. Strict return precautions were also discussed at length. Patient voiced understanding and agreement with the plan. Patient is hemodynamically stable at the time of disposition. (NORBERT ROWAN APRN) Dragon Disclaimer: Dragon Disclaimer: This electronic medical record was generated, in whole or in part, using a voice recognition dictation system. (NORBERT ROWAN APRN) Attending Co-Sign The patient was seen and interviewed as well as examined at the bedside. The chart was reviewed. The case was discussed. Agree with the plan of care. (RAYMUNDO GUERRA DO) Departure Departure: Impression: Primary Impression: Fall Qualified Codes: W19.XXXA - Unspecified fall, initial encounter Disposition: HOME / SELF CARE / HOMELESS Condition: GOOD Referrals: SHARON STAHL MD (PCP) Patient Instructions: Fall Prevention and Home Safety, Head Injury, Adult Additional Instructions: You are seen in the emergency department today for a fall. Imaging was performed of your head and neck which showed no acute findings. You do have a skin tear to the back of your scalp which was cleaned and a dressing was placed. Please change your dressing twice a day and when soiled. Monitor for any signs of infection which include redness, warmth, swelling or drainage. You can take Tylenol at home for your pain. Continue wearing your c-collar as previously advised by your surgeon. I would follow-up with your primary care provider tomorrow regarding your ER visit. Return to the emergency department if you develop worsening of your pain, neck or back pain, loss of bowel or bladder, numbness or tingling in your groin or down your legs, inability to walk, confusion, intractable nausea or vomiting, vision changes, unilateral weakness, speech changes or any new or worsening concerns. NORBERT ROWAN APRN Oct 15, 2021 14:25 RAYMUNDO GUERRA DO Oct 16, 2021 10:03
[2021-10-15 15:03] VITALS: BP 130/84
== END 2021-10-15 15:05 | disposition home or self-care (01) ==
LOC: ER 13:33
DX: S00.81XA Abrasion of other part of head, initial encounter (principal); Z88.8 Allergy status to other drugs, medicaments and biological substances; W01.0XXA Fall on same level from slipping, tripping and stumbling without subsequent striking against object, initial encounter; Y93.89 Activity, other specified; Y92.89 Other specified places as the place of occurrence of the external cause; Y99.8 Other external cause status
CPT/HCPCS: 70450; 72125; 99284

== ENCOUNTER 2021-12-27 13:49 | Emergency (ER) | payer MEDICARE ==
[~2021-12-27] VITALS: Ht 172.7 cm; Wt 71.0 kg
--- NOTE | 2021-12-27 14:10 | PHYS DOC ---
Past History Additional Past Medical Histor: Lung Cancer Past Surgical History: Cervical Fusion, Tonsillectomy Alcohol Use: None General Adult EDM: Chief Complaint: DIZZY/LIGHT HEADED HPI: HPI: Patient is a 76-year-old male who arrives ambulatory to the emergency department complaining of episodic dizziness since yesterday. Patient reports he noticed that when he was moving he became considerably dizzy. Patient states this has been occurring intermittently and the patient states when he is moving around he feels as if he may fall from time to time. Patient states he requires support when he feels this way as he is fearful of falling. Patient states when he rests his dizziness generally subsides. Despite this, he denies any history of substernal chest pain. He further denies being short of breath or having any recent illness. Additionally the patient denies the sensation of being lightheaded and has not had a change in his level of consciousness. It is worth noting the patient does have a history of lung cancer and is currently being treated for this. He is awake, alert and nontoxic-appearing. He is neurologically intact. Review of Systems: Review of Systems: Constitutional: Denies fever or chills Eyes: Denies change in visual acuity HENT: Denies nasal congestion or sore throat Respiratory: Denies cough or shortness of breath Cardiovascular: Denies chest pain or edema GI: Denies abdominal pain, nausea, vomiting, bloody stools or diarrhea : Denies dysuria Musculoskeletal: Denies back pain or joint pain Integument: Denies rash Neurologic: Reports dizziness. Denies headache, focal weakness or sensory changes Endocrine: Denies polyuria or polydipsia Lymphatic: Denies swollen glands Psychiatric: Denies depression or anxiety Allergies: Allergies: Allergies Coded Allergies Type Severity Reaction Last Updated Verified adhesive tape Allergy Unknown 10/06/21 Yes Physical Exam: PE: Constitutional: Well developed, well nourished, no acute distress, non-toxic appearance. [] HENT: Normocephalic, atraumatic, bilateral external ears normal, oropharynx moist, no oral exudates, nose normal. [] Eyes: PERRLA, EOMI, conjunctiva normal, no discharge. [] Neck: Normal range of motion, no tenderness, supple, no stridor. [] Cardiovascular:Heart rate regular rhythm, no murmur [] Lungs & Thorax: Bilateral breath sounds clear to auscultation [] Abdomen: Bowel sounds normal, soft, no tenderness, no masses, no pulsatile masses. [] Skin: Warm, dry, no erythema, no rash. [] Back: No tenderness, no CVA tenderness. [] Extremities: No tenderness, no cyanosis, no clubbing, ROM intact, no edema. [] Neurologic: Alert and oriented X 3, normal motor function, normal sensory function, no focal deficits noted. [] Psychologic: Affect normal, judgement normal, mood normal. [] Current Patient Data: Vital Signs: Vital Signs Date Time Temp Pulse Resp B/P (MAP) Pulse Ox O2 Delivery O2 Flow Rate FiO2 12/27/21 13:58 98.1 92 20 114/76 (89) 97 Room Air EKG: EKG: [] EKG was obtained at 1407 hrs. and reveals a sinus rhythm with a ventricular rate of 88 bpm. Intervals are normal. There is left axis deviation in addition to left anterior fascicular block. There are no acute ST/T wave changes to denote ischemia. There is no STEMI present. Radiology/Procedures: Radiology/Procedures: [][address] [address] IMAGING REPORT Signed PATIENT: HARI COLORADO DACCOUNT: [id number] : 1945 LOCATION: ER AGE: 76 SEX: M EXAM STATUS: REG ER ORD. PHYSICIAN: PEDRO ROACH DO REASON: Dizziness PROCEDURE: CT CODE STROKE HEAD WO CT STROKE HEAD W/O History: Dizziness Comparison: 10/15/2021 Technique: Noncontrast CT imaging was performed of the head. Findings: No intracranial hemorrhage. No mass effect. No hydrocephalus. No evidence of acute territorial infarction. Hypoattenuation of the periventricular and deep white matter consistent with chronic microvascular ischemic changes. Imaged orbits are unremarkable. Imaged paranasal sinuses and mastoid air cells are clear. The scalp and calvarium are unremarkable. Impression: 1. No acute intracranial abnormality. Findings discussed with PEDRO ROACH DO at 12/27/2021 2:23 PM. FOR INTERNAL CODING PURPOSES RESULT CODE: (C) ----- Exposure: One or more of the following individualized dose reduction techniques were utilized for this examination: 1. Automated exposure control 2. Adjustment of the mA and/or kV according to patient size 3. Use of iterative reconstruction technique. Electronically signed by: Michele Cuevas MD (12/27/2021 2:23 PM) [id number] DICTATED AND SIGNED BY: MICHELE CUEVAS MD DATE: 12/27/21 1421 CC: SHARON STAHL MD; PEDRO ROACH DO ~ [place] [address] IMAGING REPORT Signed PATIENT: HARI COLORADO DACCOUNT: [id number] : 1945 LOCATION: ER AGE: 76 SEX: M EXAM STATUS: REG ER ORD. PHYSICIAN: PEDRO ROACH DO REASON: Dizziness, weakness PROCEDURE: PORTABLE CHEST 1V EXAMINATION: Chest radiograph. VIEWS: Single AP view of the chest COMPARISON: Chest radiograph from 07/30/2021 INDICATION:76 years, Male, dizziness, weakness. FINDINGS: Right chest Port-A-Cath with tip in the SVC. Stable cardiac mediastinal silhouette. Left perihilar and basilar opacity appears mildly increased from prior. Small left pleural effusion. Biapical pleural scarring. Right lung is clear. No acute osseous process. Cervical spinal fusion instrumentation is again noted. IMPRESSION: Small left pleural effusion with lingular and left lower lobe infiltrate and/or scarring, this appears increased from prior. Electronically signed by: Susan Boyd DO (12/27/2021 2:50 PM) [id number] DICTATED AND SIGNED BY: SUSAN BOYD DO DATE: 12/27/21 1446 CC: SHARON STAHL MD; PEDRO ROACH DO ~ Heart Score: C/O Chest Pain: No Risk Factors: Risk Factors: DM, Current or recent (<one month) smoker, HTN, HLP, family history of CAD, obesity. Risk Scores: Score 0 - 3: 2.5% MACE over next 6 weeks - Discharge Home Score 4 - 6: 20.3% MACE over next 6 weeks - Admit for Clinical Observation Score 7 - 10: 72.7% MACE over next 6 weeks - Early Invasive Strategies Course & Med Decision Making: Course & Med Decision Making Pertinent Labs and Imaging studies reviewed. (See chart for details). Patient was taken to a room where labs were drawn as well as imaging taken. CT imaging of the brain did not reveal any acute abnormality. Chest x-ray did reveal a sizable left-sided pleural effusion. As such I do believe the patient warrants pleurodesis. Given this development, the [facility] where he has been admitted to the hospital service. I do not believe the patient likely had a CVA/TIA however I do believe the patient may benefit from an MRI for his given condition. Furthermore the patient states he is not actively taking therapy for his lung cancer as he does not want to deal with the adverse effects of chemotherapy. Nonetheless he has agreed to transfer and will be transported not emergently wants a bed is made available. He is nontoxic-appearing resting comfortably. He is stable for transport. [] [place] Disclaimer: Dragliz Disclaimer: This electronic medical record was generated, in whole or in part, using a voice recognition dictation system. Departure Departure: Impression: Primary Impression: Pleural effusion Additional Impressions: History of lung cancer Dizziness of unknown cause Disposition: ADMITTED INPATIENT Admitting Physician: Other (Dr. Shawn Noonan) Condition: STABLE Referrals: SHARON STAHL MD (PCP) PEDRO ROACH DO Dec 27, 2021 14:10
--- NOTE | 2021-12-27 14:25 | RAD ---
CT STROKE HEAD W/O History: Dizziness Comparison: 10/15/2021 Technique: Noncontrast CT imaging was performed of the head. Findings: No intracranial hemorrhage. No mass effect. No hydrocephalus. No evidence of acute territorial infar ction. Hypoattenuation of the periventricular and deep white matter consistent with chronic microvasc ular ischemic changes. Imaged orbits are unremarkable. Imaged paranasal sinuses and mastoid air cells are clear. The scalp a nd calvarium are unremarkable. Impression: 1. No acute intracranial abnormality. Findings discussed with PEDRO ROACH DO at 12/27/2021 2:23 PM. FOR INTERNAL CODING PURPOSES RESULT CODE: (C) ----- Exposure: One or more of the following individualized dose reduction techniques were utilized for thi s examination: 1. Automated exposure control 2. Adjustment of the mA and/or kV according to patient size 3. Use of iterative reconstruction technique. Electronically signed by: Michele Mackay MD (12/27/2021 2:23 PM) [id number]
[2021-12-27 14:32] LABS: BASO # 0.1 x10^3/uL (0.0-0.2); BASO % 1 % (0-3); EOS # 1.1 x10^3/uL (0.0-0.7); EOS % 10 % (0-3); HEMATOCRIT 39.8 % (39.0-53.0); LYMPH # 1.8 x10^3/uL (1.0-4.8); LYMPH % 17 % (24-48); MEAN CORPUSCULAR HEMOGLOBIN 28 pg (25-35); MEAN CORPUSCULAR HGB CONC 33 g/dL (31-37); MEAN CORPUSCULAR VOLUME 86 fL (79-100); MONO # 1.3 x10^3/uL (0.0-1.1); MONO % 12 % (0-9); NEUT # 6.4 x10^3uL (1.8-7.7); NEUT % 60 % (31-73); PLATELET COUNT 266 x10^3/uL (140-400); RED BLOOD COUNT 4.64 x10^6/uL (4.30-5.70); RED CELL DISTRIBUTION WIDTH 15.4 % (11.5-14.5); WHITE BLOOD COUNT 10.6 x10^3/uL (4.0-11.0)
[2021-12-27 14:39] LABS: CALCIUM 10.4 mg/dL (8.5-10.1); CREATININE 0.7 mg/dL (0.7-1.3); GFR 109.1
--- NOTE | 2021-12-27 14:53 | RAD ---
EXAMINATION: Chest radiograph. VIEWS: Single AP view of the chest COMPARISON: Chest radiograph from 07/30/2021 INDICATION:76 years, Male, dizziness, weakness. FINDINGS: Right chest Port-A-Cath with tip in the SVC. Stable cardiac mediastinal silhouette. Left perihilar an d basilar opacity appears mildly increased from prior. Small left pleural effusion. Biapical pleural scarring. Right lung is clear. No acute osseous process. Cervical spinal fusion instrumentation is ag ain noted. IMPRESSION: Small left pleural effusion with lingular and left lower lobe infiltrate and/or scarring, this appear s increased from prior. Electronically signed by: Oleksandr Boyd DO (12/27/2021 2:50 PM) [id number]
--- NOTE | 2021-12-27 19:07 | EKG ---
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
[2021-12-27 21:59] VITALS: BP 121/50
[2021-12-27] MEDS ORDERED: hydrOXYzine HCL 25 MG TABLET PO STA (22:12)
[2021-12-27] MEDS ORDERED: GABAPENTIN 100 MG CAPSULE. PO ONE (22:15)
== END 2021-12-27 21:47 | disposition admitted as inpatient to this hospital (09) ==
LOC: ER 13:49
DX: J90 Pleural effusion, not elsewhere classified (principal); R42 Dizziness and giddiness; Z85.118 Personal history of other malignant neoplasm of bronchus and lung; Z88.8 Allergy status to other drugs, medicaments and biological substances
CPT/HCPCS: 36415; 70450; 71045; 80048; 82947; 84484; 85025; 85610; 85730; 93005; 99285

== ENCOUNTER 2022-02-02 12:32 | Inpatient (IN) | payer MEDICARE ==
[~2022-02-02] VITALS: Ht 172.7 cm; Wt 77.8 kg
[~2022-02-02 12:32] MED LIST changes: -PROP8DRO2 OP; +PROP8DRO2 OU; +VANCOMYCIN 1 GM in IV NORMAL SALINE 250ML 250 ML IV SCH
--- NOTE | 2022-02-02 12:51 | EKG ---
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
[2022-02-02] MEDS ORDERED: TAMSULOSIN 0.4 MG CAP.ER.24H. PO ONE (13:00)
--- NOTE | 2022-02-02 13:05 | PHYS DOC ---
Past History Additional Past Medical Histor: Lung Cancer Past Surgical History: Cervical Fusion, Tonsillectomy Alcohol Use: None General Adult EDM: Chief Complaint: WEAKNESS/GENERALIZED HPI: HPI: Patient is a 76-year-old male coming in via EMS from home for weakness. Patient is a poor historian history provided by EMS. His called because he was having difficulty getting up and around and out of bed. Patient has a history lung cancer however has been off chemotherapy has transition to palliative care. Patient also was noted to have a cough and a temperature of 101. Review of Systems: Review of Systems: All other systems within normal limits except for as noted in the HPI Current Medications: Current Meds: Current Medications Medications (Trade) Dose Ordered Sig/Lane Start Time Stop Time Status Last Admin Dose Admin Tamsulosin HCl (Flomax) 0.4 mg 1X ONCE 02/02/22 13:00 02/02/22 13:01 DC Allergies: Allergies: Allergies Coded Allergies Type Severity Reaction Last Updated Verified adhesive tape Allergy Unknown 10/06/21 Yes Physical Exam: PE: Constitutional: Well developed, well nourished, no acute distress, non-toxic appearance. [] HENT: Normocephalic, atraumatic, bilateral external ears normal, nose normal. [] Eyes: PERRLA, conjunctiva normal, no discharge. [] Neck: No rigidity, supple, no stridor. [] Cardiovascular: Regular rate and rhythm, brisk cap refill [] Lungs & Thorax: Non labored symmetric respirations, no tachypnea or respiratory distress [] Abdomen: Soft, nondistended. Skin: Warm, dry, no erythema, no rash. [] Back: Unremarkable Extremities: No deformities, range of motion grossly intact, no lower extremity edema [] Neurologic: Alert and oriented X 3, no focal deficits noted. [] Psychologic: Affect normal, judgement normal, mood normal. [] Current Patient Data: Labs: Laboratory Tests Test 02/02/22 12:39 Glucose (Fingerstick) 108 mg/dL (70-99) H Vital Signs: Vital Signs Date Time Temp Pulse Resp B/P (MAP) Pulse Ox O2 Delivery O2 Flow Rate FiO2 02/02/22 12:44 101.0 108 24 141/87 (105) 96 Room Air EKG: EKG: [] Radiology/Procedures: Radiology/Procedures: [address] [address] IMAGING REPORT Signed PATIENT: HARI COLORADO DACCOUNT: [id number] : 1945 LOCATION: ER AGE: 76 SEX: M EXAM STATUS: REG ER ORD. PHYSICIAN: JOY TEMPLETON MD REASON: fever, unknown source,GIVEN 100 LM OMNI 300 PROCEDURE: CT CHEST ABD PELVIS W/CONTRAST CTA chest abdomen pelvis with contrast dated 02/02/2022 COMPARISON: 05/06/2021 INDICATION: Fever of unknown origin. TECHNIQUE: Contiguous axial imaging the chest abdomen pelvis performed after the administration of 100 cc Omnipaque 300. One or more of the following individualized dose reduction techniques were utilized for this examination: 1. Automated exposure control 2. Adjustment of the mA and/or kV according to patient size 3. Use of iterative reconstruction technique. FINDINGS: There is a dense area of consolidation in the left lower lobe with occlusion of the left lower lobe airways. There is also multifocal areas of nodular pleural thickening on the left. Pleural nodules extend to the apical region involves both the medial and lateral pleural margins. Largest nodules measure up to 1.5 cm. No definite rib destruction. There is a hyperdense nodule in the chest wall posteriorly on the left that measures about 2 cm on image 92, new from prior study. Heart size is mildly enlarged. No pericardial effusion. Coronary artery brandon cifications. Ectasia of the ascending thoracic aorta measuring 4 cm transverse. Enlarged subcarinal lymph node measuring 1.5 cm short axis. There are also mildly enlarged left hilar, left supraclavicular and left internal mammary chain lymph nodes. No definite axillary adenopathy. There are couple of noncalcified pulmonary nodules on the left. One along the major fissure on image 58 measures 1.3 cm. There is also a 3 mm noncalcified nodule in the superior segment left lower lobe on image 58. Noncalcified nodule in the left lower lobe on image 65 measures 1.3 cm. No right-sided pulmonary nodule or right-sided pleural effusion. Images of the abdomen show nodular thickening of the left hemidiaphragm that extend inferiorly along the peritoneal surfaces of the anterior abdominal wall. There are borderline enlarged pericardiophrenic lymph nodes. No significant ascites. No significant retroperitoneal or mesenteric lymphadenopathy. Liver is homogeneous. Spleen is normal in size. Gallbladder is mildly distended. Adrenal glands and kidneys are unremarkable. There are well-circumscribed low- density foci at the upper and midpole left kidney, likely cysts. No hydronephrosis. Unopacified GI tract normal in caliber and contour. No bowel wall thickening. Abdominal aorta normal in caliber. Moderate stool throughout colon. Images of pelvis show nondistended urinary bladder. Prostate gland is moderately enlarged. No free fluid or pelvic adenopathy. Bone windows show no acute findings. Multilevel spondylosis. There is an in determinate radiolucent focus within the L3 vertebral body IMPRESSION: 1. Dense consolidation of the left lower lobe with nodular areas of pleural thickening, suspicious for primary malignancy and pleural spread. 2. Multiple pulmonary nodules consistent with metastatic disease. There are also enlarged mediastinal, left hilar and left supraclavicular lymph nodes suggestive of metastatic lymph node spread. 3. There is some nodular thickening of the left hemidiaphragm and along the anterior peritoneal surfaces on the left suggesting localized spread. There are also mildly enlarged pericardiophrenic paraesophageal lymph nodes. 4. There is a hyperdense nodule along the left chest wall musculature the could represent chest wall soft tissue metastasis. 5. Wall thickening of the stomach, nonspecific. Consider acute or chronic gastritis. Gastric malignancy not excluded. 6. Indeterminate radiolucent focus at the L3 vertebral body. Early bone metastasis is not excluded. Electronically signed by: Yvon Zambrano MD (02/02/2022 2:56 PM) [facility] [place] AND SIGNED BY: YVON ZAMBRANO MD DATE: 02/02/22 1442 CC: JOY TEMPLETON MD; SHARON STAHL MD ~ [] Heart Score: C/O Chest Pain: No Risk Factors: Risk Factors: DM, Current or recent (<one month) smoker, HTN, HLP, family history of CAD, obesity. Risk Scores: Score 0 - 3: 2.5% MACE over next 6 weeks - Discharge Home Score 4 - 6: 20.3% MACE over next 6 weeks - Admit for Clinical Observation Score 7 - 10: 72.7% MACE over next 6 weeks - Early Invasive Strategies Course & Med Decision Making: Course & Med Decision Making Pertinent Labs and Imaging studies reviewed. (See chart for details) [] Tylor Disclaimer: Dragliz Disclaimer: This electronic medical record was generated, in whole or in part, using a voice recognition dictation system. Departure Departure: Impression: Primary Impression: Fever Additional Impression: Sepsis due to undetermined organism Disposition: ADMITTED INPATIENT Admitting Physician: Sharon Stahl Condition: STABLE Referrals: SHARON STAHL MD (PCP) JOY TEMPLETON MD February 02, 2022 13:05
[2022-02-02] MEDS ORDERED: ACETAMINOPHEN 500 MG TABLET PO ONE (13:15)
[2022-02-02 13:26] LABS: BASO % 0 % (0-3); EOS # 0.7 x10^3/uL (0.0-0.7); EOS % 4 % (0-3); HEMATOCRIT 39.7 % (39.0-53.0); LYMPH # 1.3 x10^3/uL (1.0-4.8); LYMPH % 8 % (24-48); MEAN CORPUSCULAR HEMOGLOBIN 28 pg (25-35); MEAN CORPUSCULAR HGB CONC 33 g/dL (31-37); MEAN CORPUSCULAR VOLUME 87 fL (79-100); MONO # 1.4 x10^3/uL (0.0-1.1); MONO % 9 % (0-9); NEUT % 79 % (31-73); PLATELET COUNT 261 x10^3/uL (140-400); RED BLOOD COUNT 4.59 x10^6/uL (4.30-5.70); RED CELL DISTRIBUTION WIDTH 13.6 % (11.5-14.5); WHITE BLOOD COUNT 16.4 x10^3/uL (4.0-11.0)
[2022-02-02] MEDS ORDERED: IOHEXOL 300 MG/ML 75 ML VIAL. IV ONE (13:30)
--- NOTE | 2022-02-02 13:51 | RAD ---
EXAM: XR CHEST 1V 02/02/2022 1:00 PM CLINICAL INDICATION: Cough, fever, history of lung cancer COMPARISON: Chest radiograph 12/27/2021 TECHNIQUE: AP view of the chest FINDINGS: A right chest wall port is unchanged with tip over the upper superior vena cava. The heart is normal in size. There is left lung volume loss and an unchanged small left pleural effusion and b asilar opacities. The right lung is clear. No pneumothorax. There is surgical fusion hardware. There is gaseous distention of the colon in the upper abdomen, unchanged. IMPRESSION: Unchanged small left pleural effusion and basilar opacities with volume loss. Electronically signed by: Ayde Da Silva MD (02/02/2022 1:49 PM) [id number]
[2022-02-02 13:55] LABS: CALCIUM 10.3 mg/dL (8.5-10.1); CREATININE 0.8 mg/dL (0.7-1.3); GFR 93.5; POTASSIUM 4.7 mmol/L (3.5-5.1)
[2022-02-02 14:08] LABS: ALBUMIN 2.9 g/dL (3.4-5.0); ALBUMIN/GLOBULIN RATIO 0.8 (1.0-1.7); C REACTIVE PROTEIN 25.8 mg/L (0-3.3); MAGNESIUM 1.8 mg/dL (1.8-2.4); PHOSPHORUS 3.7 mg/dL (2.6-4.7); TOTAL BILIRUBIN 0.3 mg/dL (0.2-1.0); TOTAL PROTEIN 6.4 g/dL (6.4-8.2)
[2022-02-02] MEDS ORDERED: IV NORMAL SALINE 1,000ML 1,000 ML IV ONE (14:15)
[2022-02-02 14:25] LABS: BARBITURATES NEG (NEG); BENZODIAZEPINES NEG (NEG); CANNABINOIDS NEG (NEG); COCAINE NEG (NEG); METHADONE NEG (NEG); OPIATES POS (NEG); PHENCYCLIDINE NEG (NEG)
[2022-02-02 14:29] LABS: AMPHETAMINE/METHAMPHETAMINE NEG (NEG)
[2022-02-02] MEDS ORDERED: VANCOMYCIN 1.75 GM in IV NORMAL SALINE 500ML 500 ML IV ONE (14:30)
[2022-02-02] MEDS ORDERED: PIPERACILLIN/TAZOBACTAM 3.375 GM in IV NORMAL SALINE 50ML 50 ML IV ONE (14:30)
[2022-02-02] MEDS ORDERED: diphenhydrAMINE 50 MG/ML VIAL ONE (14:34)
[2022-02-02] MEDS ORDERED: PIPERACILLIN/TAZOBACTAM 3.375 GM VIAL IV ONE (14:35)
[2022-02-02] MEDS ORDERED: IV NORMAL SALINE 50ML 50 ML ONE (14:35)
[2022-02-02] MEDS ORDERED: diphenhydrAMINE 50 MG/ML VIAL IVP ONE (14:45)
[2022-02-02] MEDS ORDERED: hydrOXYzine HCL 25 MG TABLET PO PRN (14:45)
--- NOTE | 2022-02-02 14:59 | RAD ---
CTA chest abdomen pelvis with contrast dated 02/02/2022 COMPARISON: 05/06/2021 INDICATION: Fever of unknown origin. TECHNIQUE: Contiguous axial imaging the chest abdomen pelvis performed after the administration of 100 cc Omnipa que 300. One or more of the following individualized dose reduction techniques were utilized for this examinat ion: 1. Automated exposure control 2. Adjustment of the mA and/or kV according to patient size 3. Use of iterative reconstruction technique. FINDINGS: There is a dense area of consolidation in the left lower lobe with occlusion of the left lower lobe a irways. There is also multifocal areas of nodular pleural thickening on the left. Pleural nodules ext end to the apical region involves both the medial and lateral pleural margins. Largest nodules measur e up to 1.5 cm. No definite rib destruction. There is a hyperdense nodule in the chest wall posterior ly on the left that measures about 2 cm on image 92, new from prior study. Heart size is mildly enlarged. No pericardial effusion. Coronary artery calcifications. Ectasia of th e ascending thoracic aorta measuring 4 cm transverse. Enlarged subcarinal lymph node measuring 1.5 cm short axis. There are also mildly enlarged left hilar , left supraclavicular and left internal mammary chain lymph nodes. No definite axillary adenopathy. There are couple of noncalcified pulmonary nodules on the left. One along the major fissure on image 58 measures 1.3 cm. There is also a 3 mm noncalcified nodule in the superior segment left lower lobe on image 58. Noncalcified nodule in the left lower lobe on image 65 measures 1.3 cm. No right-sided p ulmonary nodule or right-sided pleural effusion. Images of the abdomen show nodular thickening of the left hemidiaphragm that extend inferiorly along the peritoneal surfaces of the anterior abdominal wall. There are borderline enlarged pericardiophren ic lymph nodes. No significant ascites. No significant retroperitoneal or mesenteric lymphadenopathy. Liver is homogeneous. Spleen is normal in size. Gallbladder is mildly distended. Adrenal glands and k idneys are unremarkable. There are well-circumscribed low-density foci at the upper and midpole left kidney, likely cysts. No hydronephrosis. Unopacified GI tract normal in caliber and contour. No bowel wall thickening. Abdominal aorta normal in caliber. Moderate stool throughout colon. Images of pelvis show nondistended urinary bladder. Prostate gland is moderately enlarged. No free fl uid or pelvic adenopathy. Bone windows show no acute findings. Multilevel spondylosis. There is an indeterminate radiolucent fo cus within the L3 vertebral body IMPRESSION: 1. Dense consolidation of the left lower lobe with nodular areas of pleural thickening, suspicious fo r primary malignancy and pleural spread. 2. Multiple pulmonary nodules consistent with metastatic disease. There are also enlarged mediastinal , left hilar and left supraclavicular lymph nodes suggestive of metastatic lymph node spread. 3. There is some nodular thickening of the left hemidiaphragm and along the anterior peritoneal surfa stu on the left suggesting localized spread. There are also mildly enlarged pericardiophrenic paraeso phageal lymph nodes. 4. There is a hyperdense nodule along the left chest wall musculature the could represent chest wall soft tissue metastasis. 5. Wall thickening of the stomach, nonspecific. Consider acute or chronic gastritis. Gastric malignan cy not excluded. 6. Indeterminate radiolucent focus at the L3 vertebral body. Early bone metastasis is not excluded. Electronically signed by: Yvon Zambrano MD (02/02/2022 2:56 PM) [facility]
[2022-02-02] MEDS ORDERED: GABAPENTIN 100 MG CAPSULE. PO ONE (15:00)
[2022-02-02 15:07] LABS: BACTERIA,URINE 0 /HPF (0-FEW); CLARITY,URINE CLEAR; COLOR,URINE YELLOW; GLUCOSE,URINE NEG (NEG); NITRITE,URINE NEG (NEG); SQUAMOUS EPITHELIAL CELL,UR OCC /LPF; UROBILINOGEN,URINE 0.2 mg/dL (0.2 mg/dL)
[2022-02-02] MEDS ORDERED: CYCLOBENZAPRINE 10 MG TABLET. ONE (15:08)
[2022-02-02] MEDS ORDERED: CYCLOBENZAPRINE 10 MG TABLET. PO ONE (15:15)
[2022-02-02 15:19] LABS: INFLUENZA A PATIENT NEGATIVE (NEGATIVE); INFLUENZA B PATIENT NEGATIVE (NEGATIVE)
[2022-02-02] MEDS ORDERED: IV RINGERS SOLUTION,LACTATED 1,000 ML IV ONE (15:30)
[2022-02-02] MEDS ORDERED: ONDANSETRON PF 4 MG/2 ML VIAL. IVP PRN (15:30)
[2022-02-02] MEDS ORDERED: ACETAMINOPHEN 325 MG TABLET PO PRN (15:30)
[2022-02-02 15:56] LABS: % BANDS 4 % (0-9); % EOS 4 % (0-5); % LYMPHS 14 % (24-48); % MONOS 5 % (0-10); % SEGS 73 % (35-66); PLT ESTIMATE ADEQUATE (ADEQUATE)
[2022-02-02 17:36] VITALS: BP 104/68
--- NOTE | 2022-02-02 18:51 | NUR ---
ADMISSION PATIENT ARRIVED ON UNIT VIA EMS ON [facility]. PATIENT IS HEAVILY SEDATED BUT RESPONSIVE TO NAME. WILL ANSWER WITH SHORT, APPROPRIATE RESPONSES. SPOKE WITH TO OBTAIN ADMISSION INFORMATION. UNABLE TO FULLY ORIENT TO UNIT ROUTINE. PATIENT IS CURRENTLY IN BED WITH SIDE RAILS UP X2, BED ALARM, CALL LIGHT IN REACH. WILL CONTINUE TO MONITOR.
[2022-02-02] MEDS ORDERED: GABA-585 PO (19:48)
[2022-02-02] MEDS ORDERED: MORP-16 PO (19:48)
[2022-02-02] MEDS ORDERED: HYDR-2759 PO (19:48)
[2022-02-02] MEDS ORDERED: FERR325T3 PO (19:48)
[2022-02-02] MEDS ORDERED: HYDR25TA PO (19:48)
[2022-02-02] MEDS ORDERED: LACT1TAB24 PO (19:48)
[2022-02-02] MEDS ORDERED: TRIA15CR50 TP (19:48)
[2022-02-02] MEDS ORDERED: DOCU-109 PO (19:48)
[2022-02-02] MEDS ORDERED: PSYL3.4P PO (19:48)
[2022-02-02] MEDS ORDERED: PIP/TAZO PER PHARMACY MC PRN (20:30)
[2022-02-02] MEDS ORDERED: VANCOMYCIN PER PHARMACY MC PRN (20:30)
[2022-02-02] MEDS ORDERED: MORPHINE ER 30 MG TABLET.ER PO PRN (20:30)
--- NOTE | 2022-02-02 21:24 | NUR ---
Pharmacy Vancomycin Dosing Note S:Consulted to monitor and dose vancomycin started 02/02/22. O:HARI COLORADO is a 76 year old M with Sepsis Pneumonia, . Height: 5 feet, 8 inches Weight: 77.0 kg Nordman Body Weight: 68.40 Adjusted Body Weight: 71.84 Dosing Weight: Actual Other Antibiotics: ZOSYN 3.375GM IV Q6HR LABS: Last BUN: 16 Last Creatinine: 0.8 Creatinine Clearance: 61.86 Last WBC: 16.4 Vancomycin Dosing: Loading Dose: 1750 mg x1 Dosing Weight: Actual Target Trough: 10-20 A: Based on: Actual weight, renal function, and diagnosis P: 1. Begin Vancomycin 1000 mg IV q12h 2. Follow up Trough level on 02/04/22 at 0430 3. Pharmacy will continue to monitor, follow and adjust therapy as needed. JOLYNN HARDING, 02/02/22 [id number]
[2022-02-02] MEDS: DOCUSATE SODIUM 100 MG CAPSULE PO SCH (21:43)
[2022-02-02] MEDS: hydrOXYzine HCL 25 MG TABLET PO PRN (21:43)
[2022-02-02] MEDS: PANTOPRAZOLE 40 MG TABLET. PO SCH (21:43)
[2022-02-02] MEDS: GABAPENTIN 100 MG CAPSULE. PO SCH (21:43)
[2022-02-02] MEDS: HYDROcodone/APAP 5/325MG 1 TAB TABLET PO PRN (21:44)
[2022-02-02] MEDS: POLYVINYL ALCOHOL 1.4% OPHTH SOLUTION 15ML BOTTLE. OU SCH (21:45)
[2022-02-02] MEDS: TRIAMCINOLONE ACETONIDE 0.5% TOPICAL CREAM 15GM TUBE. TP SCH (21:45)
[2022-02-02] MEDS: PIPERACILLIN/TAZOBACTAM 3.375 GM in IV NORMAL SALINE 50ML 50 ML IV SCH (21:55)
[2022-02-02 23:13] VITALS: BP 106/47
[2022-02-03] MEDS: PIPERACILLIN/TAZOBACTAM 3.375 GM in IV NORMAL SALINE 50ML 50 ML IV SCH ×4 (04:00→21:13)
[2022-02-03] MEDS: VANCOMYCIN 1 GM in IV NORMAL SALINE 250ML 250 ML IV SCH ×2 (05:24→17:52)
[2022-02-03 06:00] LABS: BASO # 0.1 x10^3/uL (0.0-0.2); BASO % 0 % (0-3); EOS # 0.2 x10^3/uL (0.0-0.7); EOS % 1 % (0-3); HEMATOCRIT 36.6 % (39.0-53.0); LYMPH # 1.3 x10^3/uL (1.0-4.8); LYMPH % 8 % (24-48); MEAN CORPUSCULAR HEMOGLOBIN 28 pg (25-35); MEAN CORPUSCULAR HGB CONC 33 g/dL (31-37); MEAN CORPUSCULAR VOLUME 87 fL (79-100); MONO # 1.9 x10^3/uL (0.0-1.1); MONO % 12 % (0-9); NEUT # 13.1 x10^3uL (1.8-7.7); NEUT % 79 % (31-73); PLATELET COUNT 235 x10^3/uL (140-400); RED BLOOD COUNT 4.21 x10^6/uL (4.30-5.70); RED CELL DISTRIBUTION WIDTH 13.4 % (11.5-14.5); WHITE BLOOD COUNT 16.5 x10^3/uL (4.0-11.0)
[2022-02-03 06:08] VITALS: BP 105/69
[2022-02-03 06:10] LABS: CALCIUM 9.8 mg/dL (8.5-10.1); GFR 72.3; POTASSIUM 3.8 mmol/L (3.5-5.1)
[2022-02-03] MEDS: LACTOBACILLUS RHAMNOSUS GG 1 CAPSULE. PO SCH ×2 (08:54→17:51)
[2022-02-03] MEDS: GABAPENTIN 100 MG CAPSULE. PO SCH ×4 (08:54→20:30)
[2022-02-03] MEDS: DOCUSATE SODIUM 100 MG CAPSULE PO SCH ×2 (08:54→20:30)
[2022-02-03] MEDS: POLYVINYL ALCOHOL 1.4% OPHTH SOLUTION 15ML BOTTLE. OU SCH ×2 (08:54→20:30)
[2022-02-03] MEDS: TRIAMCINOLONE ACETONIDE 0.5% TOPICAL CREAM 15GM TUBE. TP SCH ×2 (08:54→20:30)
[2022-02-03] MEDS: MORPHINE ER 30 MG TABLET.ER PO SCH ×2 (10:18→17:52)
--- NOTE | 2022-02-03 10:35 | HP ---
DATE OF SERVICE: 02/03/2022 ADMIT DATE: 02/02/2022 HISTORY OF PRESENT ILLNESS: A 76-year-old male with history of lung cancer and possible with mets. The patient was brought in through the Emergency Room. The patient apparently is having difficulty with mobilization and getting weaker, had a temperature of 101 degrees. He came in through the Emergency Room and was noted to have an elevated temperature and there was a dense consolidation in left lower lobe with pleural thickening. The patient has chronic gastritis as well. The patient was admitted for the IV antibiotic therapy. His white count was 16,000 and as noted, his temperature was 101.1 when he came in with a pulse of 133, so technically he had sepsis. He was treated for such. History is that of reports orthopedic surgery, cancer of the lung with mass, GERD, hypercholesterolemia, coronary artery disease, history of heart failure, family history of breast and arthritis problems. ALLERGIES: ADHESIVE TAPE. SOCIAL HISTORY: The patient had a distant history of smoking; however, denies any recent smoking here in the last 10 years. The patient is a DNR. REVIEW OF SYSTEMS: Outside of his shortness of breath, generalized weakness, the patient in turn does have some nausea, vomiting and falling quite a bit, no balance. Whether or not, we did a CT scan would be, I think, nonproductive there. The patient denies any abdominal pain. Denies any melena, hematochezia or hematemesis and neurologically, the patient is stable in that regard. PHYSICAL EXAMINATION: GENERAL: The patient, on exam is a very pleasant gentleman. VITAL SIGNS: Initial blood pressure 120/90, respiratory rate 24, pulse 130, temperature 101.1 and 96% on room air. HEENT: The patient's head was atraumatic, normocephalic. Eyes: PERRLA without jaundice. The patient has somewhat of a drawn appearance, becoming more and more cachectic, not able to eat much. NECK: Fairly stiff because of his previous neck surgery. LUNGS: Diminished, primarily in the left lower lobe, marked decreased breath sounds. CARDIOVASCULAR: Tachycardic and showed tachycardic rhythm. ABDOMEN: Soft, protuberant, diffuse tenderness, but no rebound or guarding. Positive bowel sounds. EXTREMITIES: No clubbing, cyanosis, nor edema. NEUROLOGIC: The patient is alert. Speech is somewhat slow. The patient has complained of multiple areas of pain and as noted he has metastatic cancer and with bone metastasis. He has been treated down at for his lung cancer, but they have decided that further treatment would only maybe prolong his life by a few months if that at all. Otherwise, the patient is resting comfortably. ASSESSMENT AND PLAN: Sepsis, pneumonia and lung cancer with metastatic disease, pain 8-9/10, chronic pruritus, probably secondary to the tumor itself. Continue on IV antibiotic therapy, which seems to be helping him as well as try nutritional support as well. Also, moderate protein malnutrition. He has a history of type 2 diabetes, but since he has not been eating much, he has also been having low blood sugars, hypoglycemic secondary to medications, so we have taken him off most of his medications in that regard. We will continue to monitor him accordingly. Continue IV antibiotic therapy. BINTA/IKE/KAYE DR: Giacomo TID: [id number]
[2022-02-03 11:00] VITALS: BP 103/67
[2022-02-03 15:00] VITALS: BP 104/64
[2022-02-03] MEDS: hydrOXYzine HCL 25 MG TABLET PO PRN (17:55)
[2022-02-03 19:55] VITALS: BP 106/65
[2022-02-03] MEDS: PANTOPRAZOLE 40 MG TABLET. PO SCH (20:30)
[2022-02-03] MEDS: HYDROcodone/APAP 5/325MG 1 TAB TABLET PO PRN (20:30)
[2022-02-03 23:38] VITALS: BP 112/67
[2022-02-04] MEDS: MORPHINE ER 30 MG TABLET.ER PO SCH ×3 (01:45→18:47)
[2022-02-04] MEDS: PIPERACILLIN/TAZOBACTAM 3.375 GM in IV NORMAL SALINE 50ML 50 ML IV SCH ×4 (04:34→22:12)
[2022-02-04 05:29] LABS: VANC TR 15.3 mcg/mL (10.0-20.0)
[2022-02-04] MEDS: VANCOMYCIN 1 GM in IV NORMAL SALINE 250ML 250 ML IV SCH ×2 (05:38→17:20)
[2022-02-04 05:56] VITALS: BP 102/67
[2022-02-04] MEDS: TRIAMCINOLONE ACETONIDE 0.5% TOPICAL CREAM 15GM TUBE. TP SCH ×2 (09:20→20:29)
[2022-02-04] MEDS: GABAPENTIN 100 MG CAPSULE. PO SCH ×4 (09:20→20:28)
[2022-02-04] MEDS: DOCUSATE SODIUM 100 MG CAPSULE PO SCH ×3 (09:20→21:00)
[2022-02-04] MEDS: LACTOBACILLUS RHAMNOSUS GG 1 CAPSULE. PO SCH ×3 (09:20→20:28)
[2022-02-04] MEDS: POLYVINYL ALCOHOL 1.4% OPHTH SOLUTION 15ML BOTTLE. OU SCH ×2 (09:21→20:29)
[2022-02-04 10:55] VITALS: BP 105/63
[2022-02-04] MEDS: hydrOXYzine HCL 25 MG TABLET PO PRN ×2 (11:56→18:47)
[2022-02-04 15:44] VITALS: BP 110/64
--- NOTE | 2022-02-04 18:17 | NUR ---
Pt has been pleasant and cooperative, cracking jokes with the staff. He is uncomfortable and concerned about itching and pain medications. Pt had many questions about timing and use of various medications. Educated on medication use and timing and assured pt's we were monitoring reactions and comfort level. Pt mostly able to feed self. He struggles with setup and seasoning food.
[2022-02-04 19:48] VITALS: BP 119/66
[2022-02-04 20:01] VITALS: BP 119/66
[2022-02-04] MEDS: PANTOPRAZOLE 40 MG TABLET. PO SCH (20:29)
[2022-02-04 23:18] VITALS: BP 106/70
[2022-02-05] MEDS: MORPHINE ER 30 MG TABLET.ER PO SCH ×3 (01:45→17:23)
[2022-02-05] MEDS: PIPERACILLIN/TAZOBACTAM 3.375 GM in IV NORMAL SALINE 50ML 50 ML IV SCH ×4 (04:14→22:00)
[2022-02-05] MEDS: VANCOMYCIN 1 GM in IV NORMAL SALINE 250ML 250 ML IV SCH ×2 (05:07→17:00)
[2022-02-05 05:35] VITALS: BP 123/78
[2022-02-05] MEDS: POLYVINYL ALCOHOL 1.4% OPHTH SOLUTION 15ML BOTTLE. OU SCH ×2 (08:38→21:00)
[2022-02-05] MEDS: DOCUSATE SODIUM 100 MG CAPSULE PO SCH ×2 (08:38→21:00)
[2022-02-05] MEDS: TRIAMCINOLONE ACETONIDE 0.5% TOPICAL CREAM 15GM TUBE. TP SCH ×2 (08:38→21:00)
[2022-02-05] MEDS: hydrOXYzine HCL 25 MG TABLET PO PRN (08:38)
[2022-02-05] MEDS: GABAPENTIN 100 MG CAPSULE. PO SCH ×4 (08:39→21:00)
--- NOTE | 2022-02-05 09:23 | NUR ---
Nursing note PT standing by his bed, confused. Assisted to the restroom. Assisted back to bed. PT verbalized pain with no numeric value. Morning assessment done, medications adminintered per doctors orders including pain medication. PT assisted with meal try. Bed low, bed alarm on. Call light within reach. PT verbalized no other needs. Will continue to monitor.
[2022-02-05 11:35] VITALS: BP 103/65
--- NOTE | 2022-02-05 13:22 | PN ---
SUBJECTIVE: A 76-year-old gentleman who has terminal lung cancer. The patient's white count stayed elevated at 16,000. He is on IV antibiotic therapy for sepsis. The patient is resting fairly comfortably; however, ____ quite weakened with his cancer. He has marked decreased breath sounds in the left lower lobe, but he seems to be having a fairly good day. OBJECTIVE: GENERAL: The patient is alert and oriented. LUNGS: Diminished throughout, but basically clear except for the left lower lobe, which shows marked diminishment of breath sounds. CARDIOVASCULAR: Stable. Regular sinus rhythm. ABDOMEN: Soft, nontender, protuberant. EXTREMITIES: No clubbing, cyanosis, nor edema. MUSCULOSKELETAL: Generalized weakness from the cancer and generalized severe pain because of mets to his spine. IMPRESSION: Sepsis, pneumonia, lung cancer with mets, severe chronic pain secondary to metastatic cancer, leukocytosis, anemia of chronic disease, hyperglycemia, hypercalcemia secondary to the metastatic disease. Continue pain management and IV antibiotic therapy. BITNA/BINTA/NEVILLE DR: Giacomo TID: [id number]
[2022-02-05] MEDS: hydrOXYzine HCL 10 MG TABLET PO SCH ×2 (14:00→21:00)
[2022-02-05 15:08] VITALS: BP 126/67
[2022-02-05] MEDS: LACTOBACILLUS RHAMNOSUS GG 1 CAPSULE. PO SCH (17:00)
--- NOTE | 2022-02-05 17:26 | NUR ---
Nursing note PT sitting on the side of the bed, eating dinner. Family at bedside. Evening medications administered. PT scheduled pain medication non-administered when PT verbalized no pain and does not want any pain medication at this time. Bed low, call light within reach. PT verbalized no other needs.
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
[2022-02-05] MEDS: PANTOPRAZOLE 40 MG TABLET. PO SCH (21:00)
--- NOTE | 2022-02-05 22:21 | NUR ---
Pt is non compliant this night. He refuses his assessment, vitals, oral medications, and IV antibiotics. Pt is angry and states, "What are you doing in here? Go away I do not want anything done and I don't care about my pneumonia."
--- NOTE | 2022-02-06 00:21 | NUR ---
When checking on patient he states, "Get the hell out of here!"
[2022-02-06] MEDS: MORPHINE ER 30 MG TABLET.ER PO SCH ×3 (01:45→15:43)
[2022-02-06] MEDS: PIPERACILLIN/TAZOBACTAM 3.375 GM in IV NORMAL SALINE 50ML 50 ML IV SCH ×5 (04:00→22:39)
[2022-02-06] MEDS: VANCOMYCIN 1 GM in IV NORMAL SALINE 250ML 250 ML IV SCH ×3 (05:00→23:34)
--- NOTE | 2022-02-06 06:08 | NUR ---
Pt got out of room, had his oxygen tubing ripped in half, and wanting a bag so he could "get out of this place." This nurse tried to redirect patient and he states, "I don't care who you think you are Priyanka W but you need to get out of my way." The nursing guest service supervisor came up to him and he was easily redirected by her. Got patient back into his room and agreed to antibiotics.
[2022-02-06 07:44] LABS: VANC TR 18.2 mcg/mL (10.0-20.0)
[2022-02-06] MEDS ORDERED: fentaNYL 25MCG/HR 1 PATCH PATCH TD SCH (09:00)
[2022-02-06] MEDS: LACTOBACILLUS RHAMNOSUS GG 1 CAPSULE. PO SCH ×2 (09:59→15:44)
[2022-02-06] MEDS: GABAPENTIN 100 MG CAPSULE. PO SCH ×3 (09:59→20:26)
[2022-02-06] MEDS: POLYVINYL ALCOHOL 1.4% OPHTH SOLUTION 15ML BOTTLE. OU SCH ×2 (09:59→20:26)
[2022-02-06] MEDS: hydrOXYzine HCL 10 MG TABLET PO SCH ×3 (09:59→20:26)
[2022-02-06] MEDS: CETIRIZINE HCL 10 MG TABLET PO SCH (10:00)
[2022-02-06] MEDS: DOCUSATE SODIUM 100 MG CAPSULE PO SCH ×3 (10:00→20:59)
[2022-02-06] MEDS: TRIAMCINOLONE ACETONIDE 0.5% TOPICAL CREAM 15GM TUBE. TP SCH ×2 (10:00→20:58)
[2022-02-06] MEDS ORDERED: VANCOMYCIN 750 MG in IV NORMAL SALINE 250ML 250 ML IV SCH (12:00)
[2022-02-06 15:00] VITALS: BP 146/83
--- NOTE | 2022-02-06 16:23 | NUR ---
PT DID NOT RECIEVE 1700 GABAPENTIN DUE TO RECEIVING THE 1400 LATER DUE TO PT NOT WANTING TO TAKE AT THE TIME.
[2022-02-06 19:00] VITALS: BP 129/77
[2022-02-06] MEDS: PANTOPRAZOLE 40 MG TABLET. PO SCH (20:26)
[2022-02-07] MEDS: MORPHINE ER 30 MG TABLET.ER PO SCH ×2 (01:45→09:41)
--- NOTE | 2022-02-07 02:27 | NUR ---
Pt is extremely independent. Pt does not like help from anyone. Pt did however let this nurse help him get up from the toilet.
[2022-02-07] MEDS: PIPERACILLIN/TAZOBACTAM 3.375 GM in IV NORMAL SALINE 50ML 50 ML IV SCH ×2 (04:04→09:42)
[2022-02-07 04:46] LABS: BASO # 0.1 x10^3/uL (0.0-0.2); BASO % 1 % (0-3); EOS # 0.8 x10^3/uL (0.0-0.7); EOS % 9 % (0-3); HEMOGLOBIN 10.8 g/dL (13.0-17.5); LYMPH # 1.1 x10^3/uL (1.0-4.8); LYMPH % 12 % (24-48); MEAN CORPUSCULAR HEMOGLOBIN 28 pg (25-35); MEAN CORPUSCULAR HGB CONC 33 g/dL (31-37); MEAN CORPUSCULAR VOLUME 87 fL (79-100); MONO # 1.4 x10^3/uL (0.0-1.1); MONO % 15 % (0-9); NEUT % 64 % (31-73); PLATELET COUNT 236 x10^3/uL (140-400); RED BLOOD COUNT 3.78 x10^6/uL (4.30-5.70); RED CELL DISTRIBUTION WIDTH 13.6 % (11.5-14.5); WHITE BLOOD COUNT 9.4 x10^3/uL (4.0-11.0)
[2022-02-07 04:49] LABS: CREATININE 0.7 mg/dL (0.7-1.3); GFR 109.1
--- NOTE | 2022-02-07 05:05 | PN ---
DATE: 02/05/2022 SUBJECTIVE: The patient in with sepsis as a left lower lobe pneumonia, seems to be doing a little bit better and will be on continuous oxygen. The patient still has itching, probably from his lung cancer, tried various medications to control that. Other than that, seems to be breathing a little bit easier. OBJECTIVE: VITAL SIGNS: Blood pressure 123/78, respiratory rate 18, pulse 75, afebrile, 2 liters at 92. GENERAL: The patient is alert and oriented, baseline, a little bit groggy. LUNGS: Diminished, primarily in the left lower lung bases. CARDIOVASCULAR: Regular sinus rhythm. ABDOMEN: Soft, nontender. IMPRESSION: Therefore, sepsis, pneumonia, severe protein malnutrition, lung cancer. PLAN: Continue with present drug regimen and make further evaluation on him as indicated. BINTA/STACEY/FEROZ DR: BINTA/caryn TID: [id number]
[2022-02-07 06:12] VITALS: BP 103/68
--- NOTE | 2022-02-07 08:37 | RAD ---
PA and lateral chest radiographs 02/07/2022 CLINICAL HISTORY: Pneumonia. PA and lateral digital radiographs of chest were obtained. Comparison study is dated 02/02/2022. Anteri or plate and bone screws within the mid/lower cervical vertebrae, unchanged. A right internal jugular central venous catheter is unchanged. The cardiac silhouette is mildly enlarged. Atherosclerotic brandon cification thoracic aorta is seen. The thoracic aorta is tortuous. Left lower lobe atelectasis and/or infiltrate is again seen, unchanged. Left pleural thickening is again noted. No pneumothorax or pleu ral effusion is seen. The osseous structures are unchanged. IMPRESSION: Left lower lobe atelectasis and/or infiltrate, unchanged. Electronically signed by: Yahir Kraft MD (02/07/2022 8:35 AM) [id number]
[2022-02-07] MEDS: TRIAMCINOLONE ACETONIDE 0.5% TOPICAL CREAM 15GM TUBE. TP SCH (09:00)
--- NOTE | 2022-02-07 09:31 | PN ---
SUBJECTIVE: The patient is a 76-year-old male with lung cancer, pneumonia in his left lower lobe, septic. The patient has been treated with IV antibiotic therapy. The patient has become somewhat agitated and had to use some ____in IV through a port since he had been picking on his IV and destroyed ____. The patient is becoming more and more confused, disoriented. The use of Ativan seems to help in slow him down and hopefully we will repeat a chest x-ray and be ready for discharge in the a.m. IMPRESSION: Sepsis, lung cancer, pneumonia, metastatic disease ____ lung, severe pain, hyperglycemia, hypercalcemia secondary to the metastatic bone cancer. PLAN: We will keep him as comfortable as possible and make further evaluation on him. Hopefully, ready for discharge home and hospice care awaiting. BINTA/KIRSTIE/LAYTON DR: Giacomo TID: [id number]
[2022-02-07] MEDS: GABAPENTIN 100 MG CAPSULE. PO SCH ×2 (09:41→15:31)
[2022-02-07] MEDS: POLYVINYL ALCOHOL 1.4% OPHTH SOLUTION 15ML BOTTLE. OU SCH (09:41)
[2022-02-07] MEDS: DOCUSATE SODIUM 100 MG CAPSULE PO SCH (09:41)
[2022-02-07] MEDS ORDERED: LORA-254 PO (09:41)
[2022-02-07] MEDS: hydrOXYzine HCL 10 MG TABLET PO SCH ×2 (09:41→15:31)
[2022-02-07] MEDS ORDERED: CETI10TA16 PO (09:41)
[2022-02-07] MEDS: CETIRIZINE HCL 10 MG TABLET PO SCH (09:41)
[2022-02-07] MEDS: LACTOBACILLUS RHAMNOSUS GG 1 CAPSULE. PO SCH (09:41)
[2022-02-07] MEDS ORDERED: CEFD300C PO (09:43)
[2022-02-07 10:59] VITALS: BP 102/50
[2022-02-07] MEDS: HYDROcodone/APAP 5/325MG 1 TAB TABLET PO PRN (12:07)
[2022-02-07] MEDS: VANCOMYCIN 1 GM in IV NORMAL SALINE 250ML 250 ML IV SCH (12:08)
[2022-02-07 14:48] VITALS: BP 115/67
--- NOTE | 2022-02-07 16:01 | NUR ---
Pt ambulated independently to wheelchair then escorted to pov driven by . Pt helped into vehicle.
[2022-02-08] MEDS ORDERED: HEPARIN PF 500 UNIT/5 ML DISP.SYRIN. ONE (17:12)
[2022-02-08] MEDS ORDERED: HEPARIN PF 500 UNIT/5 ML DISP.SYRIN. IVP ONE (17:15)
== END 2022-02-07 16:00 | disposition hospice, home (50) | DRG 871 ==
LOC: ER 12:32 → ER HOLD 15:18 → 1 SOUTH 15:44
PROVIDERS: ADMIT Family Medicine; ATTEND Family Medicine
PROC: 02HV33Z Insertion of Infusion Device into Superior Vena Cava, Percutaneous Approach (ICD-10-PCS; principal; 2022-02-02)
DX: A41.9 Sepsis, unspecified organism (principal); J18.9 Pneumonia, unspecified organism; E43 Unspecified severe protein-calorie malnutrition; C34.32 Malignant neoplasm of lower lobe, left bronchus or lung; C79.51 Secondary malignant neoplasm of bone; D63.8 Anemia in other chronic diseases classified elsewhere; E11.65 Type 2 diabetes mellitus with hyperglycemia; E78.00 Pure hypercholesterolemia, unspecified; E83.52 Hypercalcemia; G89.3 Neoplasm related pain (acute) (chronic); I25.10 Atherosclerotic heart disease of native coronary artery without angina pectoris; I50.9 Heart failure, unspecified; K21.9 Gastro-esophageal reflux disease without esophagitis; K29.50 Unspecified chronic gastritis without bleeding; L29.9 Pruritus, unspecified; Z66 Do not resuscitate; Z85.118 Personal history of other malignant neoplasm of bronchus and lung; Z87.891 Personal history of nicotine dependence; Z90.49 Acquired absence of other specified parts of digestive tract; Z88.8 Allergy status to other drugs, medicaments and biological substances
CPT/HCPCS: 36415; 71045; 71046; 71260; 74177; 80048; 80053; 80202; 80307; 81001; 82550; 82947; 83735; 83880; 84100; 84484; 85007; 85025; 85610; 86140; 87040; 87428; 93005; 96361; 96365; 96367; 96375; J1200; J2060; J2543; J3370; J7040; J7050; U0003; 99285-25; J7030

== ENCOUNTER 2022-02-09 17:57 | Observation (INO) | payer MEDICARE ==
[~2022-02-09] VITALS: Ht 172.7 cm; Wt 74.4 kg
[~2022-02-09 17:57] MED LIST changes: +CEFD300C PO; +CETI10TA16 PO; +DOCU-109 PO; +FERR325T3 PO; +GABA-585 PO; +HYDR-2759 PO; +HYDR25TA PO; +LACT1TAB24 PO; +LORA-254 PO; +MORP-16 PO; +PSYL3.4P PO; +TRIA15CR50 TP; -VANCOMYCIN 1 GM in IV NORMAL SALINE 250ML 250 ML IV SCH
--- NOTE | 2022-02-09 18:08 | PHYS DOC ---
Past History Additional Past Medical Histor: Lung Cancer (NORBERT ROWAN APRN) Past Surgical History: Cervical Fusion, Tonsillectomy (NORBERT ROWAN APRN) Alcohol Use: None (NORBERT ROWAN APRN) General Adult EDM: Chief Complaint: HIP PAIN HPI: HPI: Patient is a 76-year-old male who presents to the emergency department following a fall that occurred this afternoon. Patient reports that he lost his balance and fell and was helped up by nursing staff. Patient denies hitting his head or loss of consciousness. He denies any new neck or back pain but reports chronic back pain. Patient denies any saddle anesthesias. He was given [place] for his pain and reports that that did improve his pain. He states the reason he called the EMS for transport is he went to the bathroom prior to ER arrival and noticed some pain while sitting. (NORBERT ROWAN APRN) Review of Systems: Review of Systems: HENT: See HPI Musculoskeletal: See HPI Integument: See HPI Neurologic: See HPI (NORBERT ROWAN APRN) Allergies: Allergies: Allergies Coded Allergies Type Severity Reaction Last Updated Verified adhesive tape Allergy Unknown 10/06/21 Yes (NORBERT ROWAN APRN) Physical Exam: PE: Constitutional: Well developed, well nourished, no acute distress, non-toxic appearance. [] HENT: Normocephalic, atraumatic, bilateral external ears normal, oropharynx moist, no oral exudates, nose normal. [] Eyes: PERRL, EOMI, conjunctiva normal, no discharge. [] Neck: Normal range of motion, no bony spinal tenderness, supple, no stridor. [] Cardiovascular:Heart rate regular rhythm, no murmur [] Lungs & Thorax: Bilateral breath sounds clear to auscultation [] Abdomen: Bowel sounds normal, soft, no tenderness, no masses, no pulsatile masses. [] Skin: Warm, dry, no erythema, no rash. [] Back: No tenderness, normal range of motion Extremities: No tenderness, no cyanosis, no clubbing, ROM intact, no edema. [] No shortening or rotation of left leg, range of motion intact, neuro intact Neurologic: Alert and oriented X 3, normal motor function, normal sensory function, no focal deficits noted. [] Psychologic: Affect normal, judgement normal, mood normal. [] (NORBERT ROWAN APRN) Current Patient Data: Vital Signs: Vital Signs Date Time Temp Pulse Resp B/P (MAP) Pulse Ox O2 Delivery O2 Flow Rate FiO2 02/09/22 18:01 92 18 102/87 (92) 99 (NORBERT ROWAN APRN) EKG: EKG: [] (NORBERT ROWAN APRN) Radiology/Procedures: Radiology/Procedures: []PROCEDURE: CT PELVIS WO CONTRAST EXAMINATION: CT PELVIS WITHOUT IV CONTRAST CLINICAL HISTORY: Pelvic and left hip pain following fall. TECHNIQUE: Noncontrast serial axial images obtained through the bony pelvis with sagittal and coronal reconstructions. CT Dose Reduction Employed: One or more of the following individualized dose reduction techniques were utilized for this examination: 1. Automated exposure control 2. Adjustment of the mA and/or kV according to patient size 3. Use of iterative reconstruction technique. COMPARISON: Left hip radiographs 02/09/2022, CT chest/abdomen/pelvis 02/02/2022 FINDINGS: No evidence of acute fracture. Mild degenerative changes bilateral hips. Minimal degenerative changes bilateral SI joints. Pubic symphysis within normal limits. Partially visualized lumbar degenerative changes. Redemonstration of nonspecific 1.5 cm lytic focus in the L3 vertebral body. Nonspecific 8 mm sclerotic focus in the right iliac wing, possibly a bone island. Tendinosis bilateral hamstring origins, incompletely evaluated. Mild gluteal insertional tendinosis bilaterally, incompletely evaluated. Tendons and muscles otherwise unremarkable on limited evaluation. Mild asymmetric subcutaneous edema along the left flank. Vascular calcifications. Marked stool throughout the partially visualized colon, more pronounced compared to the prior study. IMPRESSION: No evidence of acute fracture. Mild degenerative changes bilateral hips. Partially visualized marked colonic stool incidentally noted, correlate for constipation. Multiple additional nonacute findings as described. Electronically signed by: Serg Cuevas DO (02/09/2022 8:22 PM) [facility] DICTATED AND SIGNED BY: SERG CUEVAS DO DATE: 02/09/222011 CC: SHARON STAHL MD; NORBERT ROWAN APRN ~ (NORBERT ROWAN APRN) Heart Score: C/O Chest Pain: N/A Risk Factors: Risk Factors: DM, Current or recent (<one month) smoker, HTN, HLP, family history of CAD, obesity. Risk Scores: Score 0 - 3: 2.5% MACE over next 6 weeks - Discharge Home Score 4 - 6: 20.3% MACE over next 6 weeks - Admit for Clinical Observation Score 7 - 10: 72.7% MACE over next 6 weeks - Early Invasive Strategies (NORBERT ROWAN APRN) Course & Med Decision Making: Course & Med Decision Making Pertinent Labs and Imaging studies reviewed. (See chart for details) [] Patient presents to the emergency department following a fall. Patient reports he lost his balance and fell down this afternoon. He is reporting left hip pain. Patient has been able to bear weight and ambulate. He denies any head or neck pain. Denies any head injury or loss of consciousness. Imaging w as performed. They were negative for any acute fractures. RADIO ARTIST notified me that patient is unable to bear weight on his own. She reports that he is very weak. Patient resides at home with his and she does not believe that she is capable of taking care of him. She would like to have him admitted for possible rehab or long term placement. I discussed this with Dr. Holman who is patient's primary care provider. He agreed to admit the patient under his services. (NORBERT ROWAN APRN) Dragon Disclaimer: Dragon Disclaimer: This electronic medical record was generated, in whole or in part, using a voice recognition dictation system. (NORBERT ROWAN APRN) Departure Departure: Impression: Primary Impression: Hip pain Additional Impression: Unable to care for self Disposition: ADMITTED INPATIENT Condition: STABLE Referrals: SHARON STAHL MD (PCP) Dragon Disclaimer This chart was dictated in whole or in part using Voice Recognition software in a busy, high-work load, and often noisy Emergency Department environment. It may contain unintended and wholly unrecognized errors or omissions. (MALLORIE ROSEN MD) Attending Signature Attending Signature I have participated in the care of this patient and I have reviewed and agree with all pertinent clinical information above including history, exam, and recommendations. (MALLORIE ROSEN MD) NORBERT ROWAN APRN February 09, 2022 18:08 MALLORIE ROSEN MD February 11, 2022 18:00
--- NOTE | 2022-02-09 19:44 | RAD ---
EXAMINATION: XR LT HIP (WITH OR WITHOUT PELVIS) 2 VIEWS CLINICAL HISTORY: Left hip pain following fall. TECHNIQUE: XR LT HIP (WITH OR WITHOUT PELVIS) 2 VIEWS COMPARISON: None FINDINGS/ IMPRESSION: Mild degenerative changes left hip. Degenerative changes right hip, incompletely evaluated. Pubic sym physis and SI joints maintained. Partially visualized lumbar degenerative changes. No evidence of acu te fracture, however, it is of note that the sacrum is largely obscured by overlying bowel gas and st ool. Vascular calcifications. Electronically signed by: Serg Mejia DO (02/09/2022 7:41 PM) LOIS
--- NOTE | 2022-02-09 20:24 | RAD ---
EXAMINATION: CT PELVIS WITHOUT IV CONTRAST CLINICAL HISTORY: Pelvic and left hip pain following fall. TECHNIQUE: Noncontrast serial axial images obtained through the bony pelvis with sagittal and coronal reconstructions. CT Dose Reduction Employed: One or more of the following individualized dose reduction techniques wer e utilized for this examination: 1. Automated exposure control 2. Adjustment of the mA and/or kV ac cording to patient size 3. Use of iterative reconstruction technique. COMPARISON: Left hip radiographs 02/09/2022, CT chest/abdomen/pelvis 02/02/2022 FINDINGS: No evidence of acute fracture. Mild degenerative changes bilateral hips. Minimal degenerative changes bilateral SI joints. Pubic symphysis within normal limits. Partially visualized lumbar degenerative changes. Redemonstration of nonspecific 1.5 cm lytic focus in the L3 vertebral body. Nonspecific 8 mm sclerotic focus in the right iliac wing, possibly a bone island. Tendinosis bilateral hamstring origins, incompletely evaluated. Mild gluteal insertional tendinosis b ilaterally, incompletely evaluated. Tendons and muscles otherwise unremarkable on limited evaluation. Mild asymmetric subcutaneous edema along the left flank. Vascular calcifications. Marked stool throug hout the partially visualized colon, more pronounced compared to the prior study. IMPRESSION: No evidence of acute fracture. Mild degenerative changes bilateral hips. Partially visualized marked colonic stool incidentally noted, correlate for constipation. Multiple additional nonacute findings as described. Electronically signed by: Serg Mejia DO (02/09/2022 8:22 PM) LOIS
[2022-02-09 21:02] LABS: BASO % 0 % (0-3); EOS # 0.5 x10^3/uL (0.0-0.7); EOS % 4 % (0-3); HEMATOCRIT 35.2 % (39.0-53.0); HEMOGLOBIN 11.3 g/dL (13.0-17.5); LYMPH # 1.4 x10^3/uL (1.0-4.8); LYMPH % 11 % (24-48); MEAN CORPUSCULAR HEMOGLOBIN 28 pg (25-35); MEAN CORPUSCULAR HGB CONC 32 g/dL (31-37); MEAN CORPUSCULAR VOLUME 87 fL (79-100); MONO # 1.5 x10^3/uL (0.0-1.1); MONO % 12 % (0-9); NEUT # 9.2 x10^3uL (1.8-7.7); NEUT % 73 % (31-73); PLATELET COUNT 310 x10^3/uL (140-400); RED BLOOD COUNT 4.06 x10^6/uL (4.30-5.70); RED CELL DISTRIBUTION WIDTH 13.4 % (11.5-14.5); WHITE BLOOD COUNT 12.7 x10^3/uL (4.0-11.0)
[2022-02-09 21:08] LABS: CALCIUM 10.7 mg/dL (8.5-10.1); CREATININE 0.8 mg/dL (0.7-1.3); GFR 93.5; POTASSIUM 4.5 mmol/L (3.5-5.1)
[2022-02-09 21:14] LABS: ALBUMIN 2.4 g/dL (3.4-5.0); ALBUMIN/GLOBULIN RATIO 0.7 (1.0-1.7); TOTAL BILIRUBIN 0.4 mg/dL (0.2-1.0)
--- NOTE | 2022-02-09 22:35 | NUR ---
ADMISSION: The patient, HARI COLORADO, 76 y/o, M admitted by SHARON STAHL MD, was given written information regarding hospital policies, unit procedures and contact persons. Pt arrived to room 111 via gurney, accompanied by [facility] and nursing sup. Pt here for left hip pain s/p fall. Pt is unable to care for himself at home. Pt was just recently admitted on 02/02 with sepsis and discharged home with and [facility] on 02/07. would like pt to be placed at a fdc as she is unable to care from him also. CM consulted. Discussed POC, V/U. Call light in reach. Bed alarmed for safety. Valuables were checked and LOGGED. Left in room with pt.
[2022-02-09] MEDS: MORPHINE SULFATE 2 MG/ML DISP.SYRIN. IVP PRN (22:36)
[2022-02-09 22:45] VITALS: BP 110/68
[2022-02-09] MEDS ORDERED: CYCL10TA19 PO (22:56)
[2022-02-09] MEDS ORDERED: FERR325T3 PO (22:56)
[2022-02-09] MEDS ORDERED: NIAC500C6 PO (22:56)
--- NOTE | 2022-02-10 01:29 | NUR ---
Pt's Becca called to check on pt, update given. Will be up in the morning to talk to correctional case manager regarding possible placement.
[2022-02-10 06:17] VITALS: BP 119/71
--- NOTE | 2022-02-10 09:23 | NUR ---
Pt is very pleasant and cooperative. Pt is A+Ox3 and participates in self-care. Though listed as assist x2, he was able to get himself to the toilet and wash hands and back to bed with stand-by assist. He also independently ate his breakfast. is supportive and pleasant and brings any and all paperwork she thinks we may need, but needs support to care for him on hospice.
[2022-02-10] MEDS ORDERED: HYDROcodone/APAP 5/325MG 1 TAB TABLET PO PRN (09:45)
[2022-02-10] MEDS: MORPHINE SULFATE 2 MG/ML DISP.SYRIN. IVP PRN ×2 (10:18→16:19)
[2022-02-10] MEDS ORDERED: hydrOXYzine HCL 25 MG TABLET PO PRN (11:00)
[2022-02-10] MEDS: CETIRIZINE HCL 10 MG TABLET PO SCH (11:33)
[2022-02-10] MEDS: DOCUSATE SODIUM 100 MG CAPSULE PO SCH ×2 (11:33→21:11)
[2022-02-10] MEDS: CHOLECALCIFEROL (VITAMIN D3) 1,000 UNIT TABLET PO SCH (11:33)
[2022-02-10] MEDS: CYCLOBENZAPRINE 10 MG TABLET. PO SCH ×2 (11:33→21:12)
[2022-02-10] MEDS: NIACIN ER 500 MG TABLET.ER PO SCH ×2 (11:34→21:11)
[2022-02-10] MEDS: LOSARTAN 50 MG TABLET. PO SCH (11:34)
[2022-02-10] MEDS: PANTOPRAZOLE 40 MG TABLET. PO SCH (11:34)
[2022-02-10 11:48] VITALS: BP 111/85
[2022-02-10] MEDS: NITROGLYCERIN 0.1MG/HR PATCH. TD SCH (12:37)
[2022-02-10] MEDS: MORPHINE ER 30 MG TABLET.ER PO SCH ×2 (14:20→21:11)
[2022-02-10 16:10] VITALS: BP 114/84
[2022-02-10] MEDS: LACTOBACILLUS RHAMNOSUS GG 1 CAPSULE. PO SCH (17:59)
[2022-02-10 19:05] VITALS: BP 118/78
[2022-02-10 19:20] VITALS: BP 118/78
[2022-02-10] MEDS ORDERED: LORazepam 1 MG TABLET PO PRN (21:00)
[2022-02-10] MEDS: CEFDINIR 300 MG CAPSULE PO SCH (21:10)
[2022-02-10] MEDS: GABAPENTIN 100 MG CAPSULE. PO SCH (21:11)
[2022-02-10] MEDS: FERROUS SULFATE 325 MG TABLET. PO SCH (21:11)
[2022-02-10] MEDS: PSYLLIUM SEED (WITH SUGAR) PACKET. PO SCH (21:12)
[2022-02-10] MEDS: POLYVINYL ALCOHOL/POVIDONE/PF OPHTH SOLUTION DROPERETTE. OU SCH (21:12)
--- NOTE | 2022-02-11 05:09 | HP ---
DATE OF SERVICE: 02/10/2022 ADMIT DATE: 02/09/2022 HISTORY OF PRESENT ILLNESS: A 76-year-old male who has a terminal lung cancer. Apparently, the patient came in extremely weak, unable to mobilize. His family was unable to take care of him at home. He had been falling, lost his balance several times, hitting his head. Denies any loss of consciousness or seizure activity. The patient was brought in for further evaluation, stabilization, and possible transfer to the [facility] for further care there. PAST MEDICAL HISTORY: Left lower lobe cancer as well as pneumonia in the past. The patient has gone through therapy down at , but apparently not successful. History of congestive heart failure, coronary artery disease, hypercholesterolemia, GERD, arthritis, back pain. He has had fusion of his neck, repair. The patient has previous history of smoking. Influenza, pneumococcal, COVID vaccines all up to date. FAMILY HISTORY: Breast cancer, arthritis. ALLERGIES: ADVERSE REACTION TO ADHESIVE TAPE. MEDICATIONS: At home include that of Zyrtec, cefdinir 300 mg b.i.d., cyclobenzaprine 10, ferrous sulfate, niacin, nitroglycerin, losartan, morphine sulfate, hydrocodone, potassium 40, gabapentin 100 mg b.i.d., lorazepam 1 mg, hydroxyzine for itching from the cancer, docusate sodium. SOCIAL HISTORY: The patient has about a 40-50 pack year history of smoking. He is a DNR. REVIEW OF SYSTEMS: The patient is not able to give much of a history. Also has just generalized weakness, unable to support himself as he falls continually. Denies chest pain. Does have shortness of breath and generalized achiness. PHYSICAL EXAMINATION: GENERAL: This is a pleasant white male, looking cachectic. He is very weak. He is wearing a neck brace from previous surgery. VITAL SIGNS: Blood pressure 110/60, respirations 18, pulse 88-90, afebrile, 2 liters of nasal cannula at 95. HEENT: The patient's head was atraumatic, normocephalic. Eyes: PERRLA. Mouth and throat were normal. NECK: As noted was stiff from previous surgeries and a collar on him. LUNGS: Diminished primarily in the left lower lobe, otherwise unremarkable. CARDIOVASCULAR: Regular sinus rhythm. ABDOMEN: The patient's abdomen was soft, scaphoid as the patient has been losing weight dramatically, loose skin, dry skin. EXTREMITIES: Without clubbing, cyanosis or edema. Marked musculoskeletal atrophy with loss of muscle mass secondary to his cancer and poor nutrition. NEUROLOGIC: Alert, showing marked muscle weakness in both the upper and lower extremities. Reflexes diminished throughout. The patient is not able to give much in the way of strength in the proximal muscles of the legs or the arms. Sales Project Administrator is weak bilaterally. LABORATORY DATA: The patient's white count is 12, hemoglobin 11, and hematocrit 35. Chemistries: Sodium and potassium 136, 4.5. BUN and creatinine 18 and 0.8. Calcium elevated, probably from metastatic disease. The patient has lung cancer with mets to the vertebral body and albumin low at 2.4. IMPRESSION AND PLAN: Left lower lobe pneumonia, generalized weakness with marked musculoskeletal atrophy and weakness to the musculoskeletal system. 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 The patient will be admitted, continued to be monitored. Pain management ____ he is having severe pain of 8-9/10. Also, we will make arrangements for him to be placed for continued care as he is terminal and [facility] is his hospice of choice. BINTA/PARVIN/BEVERLY DR: Giacomo TID: [id number]
--- NOTE | 2022-02-11 06:09 | NUR ---
Am assessment completed. Pt. has been up to BR with standby assist X 4 this shift. Cont. to deny discomfort this AM. No further changes from previous assessment.
[2022-02-11 07:00] VITALS: BP 104/66
[2022-02-11] MEDS: GABAPENTIN 100 MG CAPSULE. PO SCH (07:52)
[2022-02-11] MEDS: MORPHINE ER 30 MG TABLET.ER PO SCH (07:54)
[2022-02-11] MEDS: FERROUS SULFATE 325 MG TABLET. PO SCH (07:56)
[2022-02-11] MEDS: NIACIN ER 500 MG TABLET.ER PO SCH (07:56)
[2022-02-11] MEDS: LACTOBACILLUS RHAMNOSUS GG 1 CAPSULE. PO SCH (07:57)
[2022-02-11] MEDS: CETIRIZINE HCL 10 MG TABLET PO SCH (07:57)
[2022-02-11] MEDS: DOCUSATE SODIUM 100 MG CAPSULE PO SCH (07:57)
[2022-02-11] MEDS: CHOLECALCIFEROL (VITAMIN D3) 1,000 UNIT TABLET PO SCH (07:57)
[2022-02-11] MEDS: PANTOPRAZOLE 40 MG TABLET. PO SCH (07:57)
[2022-02-11] MEDS: CYCLOBENZAPRINE 10 MG TABLET. PO SCH (07:57)
[2022-02-11] MEDS: CEFDINIR 300 MG CAPSULE PO SCH (07:58)
[2022-02-11] MEDS: POLYVINYL ALCOHOL/POVIDONE/PF OPHTH SOLUTION DROPERETTE. OU SCH (07:58)
[2022-02-11] MEDS: PSYLLIUM SEED (WITH SUGAR) PACKET. PO SCH (07:59)
[2022-02-11 08:05] VITALS: BP 104/66
[2022-02-11] MEDS: LOSARTAN 50 MG TABLET. PO SCH (08:05)
--- NOTE | 2022-02-11 09:35 | DISCH ---
DISCHARGE ORDERS DISCHARGE DATE: February 11, 2022 FINAL DIAGNOSIS lung cancer with metastatic disease chronic pruritus secondary to tumor moderate protein malnutrition CONDITION AT DISCHARGE: Stable Code Status: DNR/DNI SNF STAY <30 DAYS: Yes HOSPICE: Yes HOSPICE EVALUATE & TREAT: Yes ADMIT TO LTAC: No POST DISCHARGE ORDERS: ACTIVITY ORDERS: Activity as tolerated DIET AFTER DISCHARGE: Regular TREATMENT/EQUIPMENT ORDERS: ADAPTIVE EQUIPMENT NEEDED: None DISCHARGE MEDICATIONS: Home Meds Active Scripts Cefdinir (CEFDINIR) 300 Mg Capsule, 1 CAP PO BID for pneumonia, #14 CAP Prov:SHARON STAHL MD 02/07/22 Lorazepam (ATIVAN) 1 Mg Tablet, 1 TAB PO BID for anxiety MDD 2 Tablet(s) for 30 Days, #60 TAB 0 Refills Prov:SHARON STAHL MD 02/07/22 Cetirizine Hcl (CETIRIZINE HCL) 10 Mg Tablet, 10 MG PO DAILY for itch fro cancer for 30 Days, #30 TAB Prov:SHRAON STAHL MD 02/07/22 Reported Medications Niacin (Inositol Niacinate) (NIACIN 500 MG CAPSULE) 500 Mg Capsule, 1 CAP PO DAILY for SUPPLEMENT for 30 Days, #30 CAP 0 Refills 02/09/22 Cyclobenzaprine Hcl (CYCLOBENZAPRINE HCL) 10 Mg Tablet, 1 TAB PO BID for MUSCLE SPASMS, #90 TAB 02/09/22 Ferrous Sulfate (FERROUS SULFATE) 325 Mg Tablet.dr, 325 MG PO BID for ANEMIA, TAB 02/09/22 Hydrocodone/Acetaminophen (Hydrocodone-Acetamin 5-325 mg) 1 Each Tablet, 1 TAB PO PRN Q6HRS PRN for PAIN 02/02/22 Morphine Sulfate (MORPHINE SULFATE ER) 30 Mg Tablet.er, 1 TAB PO TID for CANCER PAIN 02/02/22 Hydroxyzine Hcl (HYDROXYZINE HCL) 25 Mg Tablet, 25 MG PO PRN QID PRN for ITCHING, TAB 02/02/22 Docusate Sodium (COLACE) 100 Mg Capsule, 1 CAP PO BID for STOOL SOFTENER for 30 Days, #60 CAP 0 Refills 02/02/22 Psyllium Husk/Aspartame (METAMUCIL FIBER SINGLES PACKET) 3.4 Gm Powd.pack, 3.4 GM PO BID for CONSTIPATION, PKT 02/02/22 Lactobacillus Acidophilus (Probiotic Acidophilus) 1 Each Tablet, 1 EACH PO BIDWMEALS for GI HEALTH, TAB 02/02/22 Gabapentin (GABAPENTIN ) 100 Mg Capsule, 100 MG PO BID for NEUROGENIC PAIN, CAP 02/02/22 Propylene Glycol/Peg 400 (Genteal Tears Severe Gel Drops) 8 Ml Drops.gel, 1 DROP OU BID for DRY EYES, DROP 10/06/21 Nitroglycerin (NITRO-DUR 0.1mg/hr) 1 Each Patch.td24, 2 MG TD DAILY for HEART Last Dose: Next dose: 05/05/17 Losartan Potassium (LOSARTAN POTASSIUM ) 50 Mg Tablet, 50 MG PO DAILY for BLOOD PRESSURE Last Dose: Next Dose Due: 05/05/17 Cholecalciferol (Vitamin D3) (VITAMIN D3) 1,000 Unit Tablet, 1 TAB PO DAILY for SUPPLEMENT Last Dose: Next Dose Due: 05/05/17 Omeprazole (OMEPRAZOLE) 20 Mg Capsule.dr, 1 CAP PO HS for REFLUX Last dose: Next Dose Due: 05/05/17 SHARON STAHL MD February 11, 2022 09:35
[2022-02-11] MEDS: NITROGLYCERIN 0.1MG/HR PATCH. TD SCH (10:26)
--- NOTE | 2022-02-11 11:07 | NUR ---
PT DISCHARGED AT APPROX 1045 TO [facility] FOR [facility]EMENT VIA EMS. REPORT CALLED TO [phone]. SPOKE WITH LOUISE AND CHRISTOPHER TO CALL BACK FOR REPORT.
== END 2022-02-11 11:13 | disposition hospice, inpatient (51) ==
LOC: ER 17:57 → INTOOBSV 20:33 → 1 SOUTH 20:33
PROVIDERS: ADMIT Family Medicine; ATTEND Family Medicine
DX: S00.93XA Contusion of unspecified part of head, initial encounter (principal); M25.552 Pain in left hip; J18.9 Pneumonia, unspecified organism; R53.1 Weakness; G12.9 Spinal muscular atrophy, unspecified; I50.9 Heart failure, unspecified; I25.10 Atherosclerotic heart disease of native coronary artery without angina pectoris; K21.9 Gastro-esophageal reflux disease without esophagitis; E78.00 Pure hypercholesterolemia, unspecified; C34.92 Malignant neoplasm of unspecified part of left bronchus or lung; E43 Unspecified severe protein-calorie malnutrition; E83.52 Hypercalcemia; G89.29 Other chronic pain; R29.6 Repeated falls; Z66 Do not resuscitate; Z85.118 Personal history of other malignant neoplasm of bronchus and lung; Z87.01 Personal history of pneumonia (recurrent); Z79.899 Other long term (current) drug therapy; Z98.890 Other specified postprocedural states; Z87.891 Personal history of nicotine dependence; W01.0XXA Fall on same level from slipping, tripping and stumbling without subsequent striking against object, initial encounter; Y92.89 Other specified places as the place of occurrence of the external cause; Y93.89 Activity, other specified; Y99.8 Other external cause status
CPT/HCPCS: 36415; 72192; 73502; 80053; 85025; 96374; 96376; 99285; G0378; J2270; G0379

== ENCOUNTER 2022-02-14 08:02 | Emergency (ER) | payer MEDICARE ==
[~2022-02-14] VITALS: Ht 172.7 cm; Wt 74.4 kg
[~2022-02-14 08:02] MED LIST changes: +NIAC500C6 PO
[2022-02-14 08:03] VITALS: BP 145/95
--- NOTE | 2022-02-14 08:18 | PHYS DOC ---
Past History Additional Past Medical Histor: Lung Cancer Past Surgical History: Cervical Fusion, Tonsillectomy Alcohol Use: None General Adult EDM: Chief Complaint: MECHANICAL FALL HPI: HPI: 76-year-old male [facility] to ground-level fall this morning. The patient does not remember what happened. He is normally alert to person and baseline. EMS reports he was moving around and fell onto the ground. It is unclear if this was witnessed or unwitnessed. Since that time, the patient has intermittently complained of left shoulder and left hip pain. The patient has not reported to be on a blood thinner. The patient is normally on 2 L of oxygen at all times. He has no other significant complaints at this time. Review of Systems: Review of Systems: Constitutional: Denies fever or chills Eyes: Denies change in visual acuity HENT: Denies nasal congestion or sore throat Respiratory: Denies cough or shortness of breath Cardiovascular: Denies chest pain or edema GI: Denies abdominal pain, nausea, vomiting, bloody stools or diarrhea : Denies dysuria Musculoskeletal: Left shoulder and left hip pain Integument: Denies rash Neurologic: Denies headache, focal weakness or sensory changes Endocrine: Denies polyuria or polydipsia Lymphatic: Denies swollen glands Psychiatric: Denies depression or anxiety Allergies: Allergies: Allergies Coded Allergies Type Severity Reaction Last Updated Verified adhesive tape Allergy Unknown 10/06/21 Yes Physical Exam: PE: Constitutional: Well developed, well nourished, no acute distress, non-toxic appearance. [] HENT: Normocephalic, atraumatic, bilateral external ears normal, oropharynx moist, no oral exudates, nose normal. [] Eyes: PERRLA, EOMI, conjunctiva normal, no discharge. [] Neck: Normal range of motion, no tenderness, supple, no stridor. [] Cardiovascular: Heart rate 103, regular rhythm, 3/6 systolic murmur [] Lungs & Thorax: Bilateral breath sounds clear to auscultation [] Abdomen: Bowel sounds normal, soft, no tenderness, no masses, no pulsatile masses. [] Skin: Warm, dry, no erythema, no rash. [] Back: No tenderness, no CVA tenderness. [] Extremities: No tenderness, no cyanosis, no clubbing, ROM intact, no edema. [] Neurologic: Alert to person, normal motor function, normal sensory function, no focal deficits noted. [] Psychologic: Affect normal, mood normal. [] EKG: EKG: [] Radiology/Procedures: Radiology/Procedures: [] Impressions: Exam: XR SHOULDER_LEFT 2+ VIEWS History: Fall. Pain. Comparison: None. Findings: Osseous mineralization is normal. No fracture or dislocation is identified. There is superior subluxation of the humeral head within the glenoid with narrowing of the subacromial space. Degenerative changes that acromioclavicular and glenohumeral joints. Partially visualized multilevel cervical fixation. Hypoventilatory atrophic changes in the left lung. Atherosclerotic calcification aortic arch. Impression: 1. No acute fracture or dislocation of the left shoulder. 2. High riding humeral head with narrowing of subacromial space suggests rotator cuff tear. Electronically signed by: Michele Cuevas MD (02/14/2022 9:15 AM) [id number] DICTATED AND SIGNED BY: MICHELE CUEVAS MD DATE: 02/14/22913 CC: RAYMUNDO GUERRA DO; SHARON STAHL MD ~ Exam: XR LT HIP (WITH OR WITHOUT PELVIS) 2 VIEWS History: Fall. Pain. Comparison: 02/09/2022 Findings: Osseous mineralization is normal. No acute fracture or dislocaton. Bilateral femoral acetabular degenerative changes with subchondral sclerosis and cystic change. Atherosclerotic vascular changes. The pubic rami are intact. Degenerative changes of the lower lumbar spine. Sacroiliac joints are unremarkable. Calcified pelvic phleboliths. Impression: 1. No acute osseous abnormality in the left hip and pelvis. Electronically signed by: Michele Cuevas MD (02/14/2022 9:17 AM) [id number] DICTATED AND SIGNED BY: MICHELE CUEVAS MD DATE: 02/14/22914 CC: RAYMUNDO GUERRA DO; SHARON STAHL MD ~ EXAMINATION: CT HEAD AND C-SPINE WO CLINICAL HISTORY: Head and neck pain following fall. TECHNIQUE: Serial axial images without IV contrast were obtained from the vertex to the foramen magnum. CT of the cervical spine without IV contrast. Spiral, high resolution axial images were obtained from the skull base to the cervicothoracic junction with sagittal and coronal planar reconstructions. CT Dose Reduction Employed: One or more of the following individualized dose reduction techniques were utilized for this examination: 1. Automated exposure control 2. Adjustment of the mA and/or kV according to patient size 3. Use of iterative reconstruction technique. COMPARISON: CT head 12/19/2021, CT head and C-spine 10/15/2021 FINDINGS: BRAIN: Acute Change: Mild subcutaneous contusion along the anterior inferior left frontal scalp. No evidence of an acute parenchymal contusion or other acute parenchymal process. Hemorrhage: No evidence of acute intracranial hemorrhage. Mass Lesion/Mass Effect: No evidence of intracranial mass or extraaxial fluid collection. No significant mass effect. Chronic Change: Patchy hypoattenuation in the supratentorial white matter, nonspecific but likely represents moderate microvascular ischemia. Atherosclerotic calcification of the anterior and posterior circulation. Parenchyma: Mild to moderate generalized volume loss. Ventricles: Ventricular enlargement concordant with degree of parenchymal volume loss. Paranasal Sinuses and Skull Base: Visualized paranasal sinuses clear. No evidence of acute calvarial fracture. C-SPINE: Alignment: Straightening of the normal cervical lordosis. Osseous Structures: No evidence of acute fracture. Slight C3-4 anterolisthesis, similar to prior study and likely degenerative. C1-C4 laminectomies with C1-C5 posterior stabilization hardware. C4-5 and C5-6 ACDF. Degenerative Changes: Multilevel disc space narrowing. Multilevel neural foraminal narrowing, greatest in the mid cervical spine. No evidence of high- grade osseous spinal stenosis. Multilevel facet arthropathy. Cervical Soft Tissues: No prevertebral soft tissue swelling. Partially visualized left apical pleural thickening/scarring. Vascular calcifications. Partially visualized right internal jugular catheter. IMPRESSION: BRAIN: Mild subcutaneous contusion left frontal scalp. No evidence of acute intracranial abnormality. C-SPINE: No evidence of acute osseous abnormality involving the cervical spine. Multilevel postoperative and degenerative changes as described. Electronically signed by: Serg Cuevas DO (02/14/2022 9:50 AM) [facility] DICTATED AND SIGNED BY: SERG CUEVAS DO DATE: 02/14/22 0936 CC: RAYMUNDO GUERRA DO; SHARON STAHL MD ~ Heart Score: C/O Chest Pain: N/A Risk Factors: Risk Factors: DM, Current or recent (<one month) smoker, HTN, HLP, family history of CAD, obesity. Risk Scores: Score 0 - 3: 2.5% MACE over next 6 weeks - Discharge Home Score 4 - 6: 20.3% MACE over next 6 weeks - Admit for Clinical Observation Score 7 - 10: 72.7% MACE over next 6 weeks - Early Invasive Strategies Course & Med Decision Making: Course & Med Decision Making Pertinent Labs and Imaging studies reviewed. (See chart for details) The patient's head CT is negative for acute findings. Hip x-ray negative for ac juanito finding. His shoulder x-ray shows possible rotator cuff tear, but no acute bony abnormality. The patient's labs show anemia and elevated white count. Review of the chart shows that these values are consistent with previous. The patient's urinalysis is negative for infection. Have given him Burr 5/325 for his discomfort. I have also given him 2 of Ativan IM. Patient is stable for discharge at this time. [] Dragon Disclaimer: Dragon Disclaimer: This electronic medical record was generated, in whole or in part, using a voice recognition dictation system. Departure Departure: Impression: Primary Impression: Fall Additional Impression: Dementia Disposition: 01 HOME / SELF CARE / HOMELESS Condition: STABLE Referrals: SHARON STAHL MD (PCP) Patient Instructions: Fall Prevention and Home Safety, [id number] RAYMUNDO GUERRA DO February 14, 2022 08:18
[2022-02-14] MEDS ORDERED: ONDANSETRON PF 4 MG/2 ML VIAL. IVP ONE (09:00)
[2022-02-14] MEDS ORDERED: HYDROcodone/APAP 5/325MG 1 TAB TABLET PO ONE (09:00)
--- NOTE | 2022-02-14 09:17 | RAD ---
Exam: XR SHOULDER_LEFT 2+ VIEWS History: Fall. Pain. Comparison: None. Findings: Osseous mineralization is normal. No fracture or dislocation is identified. There is superior subluxa tion of the humeral head within the glenoid with narrowing of the subacromial space. Degenerative joyce nges that acromioclavicular and glenohumeral joints. Partially visualized multilevel cervical fixatio n. Hypoventilatory atrophic changes in the left lung. Atherosclerotic calcification aortic arch. Impression: 1. No acute fracture or dislocation of the left shoulder. 2. High riding humeral head with narrowing of subacromial space suggests rotator cuff tear. Electronically signed by: Michele Mackay MD (02/14/2022 9:15 AM) [id number]
--- NOTE | 2022-02-14 09:19 | RAD ---
Exam: XR LT HIP (WITH OR WITHOUT PELVIS) 2 VIEWS History: Fall. Pain. Comparison: 02/09/2022 Findings: Osseous mineralization is normal. No acute fracture or dislocaton. Bilateral femoral acetabular degen erative changes with subchondral sclerosis and cystic change. Atherosclerotic vascular changes. The p ubic rami are intact. Degenerative changes of the lower lumbar spine. Sacroiliac joints are unremarka ble. Calcified pelvic phleboliths. Impression: 1. No acute osseous abnormality in the left hip and pelvis. Electronically signed by: Michele Mackay MD (02/14/2022 9:17 AM) [id number]
[2022-02-14 09:28] LABS: BASO # 0.1 x10^3/uL (0.0-0.2); BASO % 0 % (0-3); EOS # 0.1 x10^3/uL (0.0-0.7); EOS % 0 % (0-3); HEMATOCRIT 37.8 % (39.0-53.0); LYMPH # 0.9 x10^3/uL (1.0-4.8); LYMPH % 6 % (24-48); MEAN CORPUSCULAR HEMOGLOBIN 28 pg (25-35); MEAN CORPUSCULAR HGB CONC 32 g/dL (31-37); MEAN CORPUSCULAR VOLUME 87 fL (79-100); MONO # 1.4 x10^3/uL (0.0-1.1); MONO % 8 % (0-9); NEUT # 13.8 x10^3uL (1.8-7.7); NEUT % 85 % (31-73); PLATELET COUNT 403 x10^3/uL (140-400); RED BLOOD COUNT 4.32 x10^6/uL (4.30-5.70); RED CELL DISTRIBUTION WIDTH 13.3 % (11.5-14.5); WHITE BLOOD COUNT 16.1 x10^3/uL (4.0-11.0)
[2022-02-14 09:48] LABS: ALBUMIN 2.5 g/dL (3.4-5.0); ALBUMIN/GLOBULIN RATIO 0.6 (1.0-1.7); CALCIUM 10.7 mg/dL (8.5-10.1); CREATININE 0.8 mg/dL (0.7-1.3); GFR 93.5; POTASSIUM 4.1 mmol/L (3.5-5.1); TOTAL BILIRUBIN 0.4 mg/dL (0.2-1.0); TOTAL PROTEIN 6.9 g/dL (6.4-8.2)
[2022-02-14 09:51] LABS: BACTERIA,URINE 0 /HPF (0-FEW); CLARITY,URINE CLEAR; COLOR,URINE YELLOW; GLUCOSE,URINE NEG (NEG); NITRITE,URINE NEG (NEG); SQUAMOUS EPITHELIAL CELL,UR FEW /LPF; UROBILINOGEN,URINE 0.2 mg/dL (0.2 mg/dL)
[2022-02-14 09:52] LABS: HYALINE CASTS, URINE OCC /HPF
--- NOTE | 2022-02-14 09:52 | RAD ---
EXAMINATION: CT HEAD AND C-SPINE WO CLINICAL HISTORY: Head and neck pain following fall. TECHNIQUE: Serial axial images without IV contrast were obtained from the vertex to the foramen magnum. CT of the cervical spine without IV contrast. Spiral, high resolution axial images were obtained from the skull base to the cervicothoracic junction with sagittal and coronal planar reconstructions. CT Dose Reduction Employed: One or more of the following individualized dose reduction techniques wer e utilized for this examination: 1. Automated exposure control 2. Adjustment of the mA and/or kV ac cording to patient size 3. Use of iterative reconstruction technique. COMPARISON: CT head 12/19/2021, CT head and C-spine 10/15/2021 FINDINGS: BRAIN: Acute Change: Mild subcutaneous contusion along the anterior inferior left frontal scalp. No evidence of an acute parenchymal contusion or other acute parenchymal process. Hemorrhage: No evidence of acute intracranial hemorrhage. Mass Lesion/Mass Effect: No evidence of intracranial mass or extraaxial fluid collection. No signific ant mass effect. Chronic Change: Patchy hypoattenuation in the supratentorial white matter, nonspecific but likely rep resents moderate microvascular ischemia. Atherosclerotic calcification of the anterior and posterior circulation. Parenchyma: Mild to moderate generalized volume loss. Ventricles: Ventricular enlargement concordant with degree of parenchymal volume loss. Paranasal Sinuses and Skull Base: Visualized paranasal sinuses clear. No evidence of acute calvarial fracture. C-SPINE: Alignment: Straightening of the normal cervical lordosis. Osseous Structures: No evidence of acute fracture. Slight C3-4 anterolisthesis, similar to prior stud y and likely degenerative. C1-C4 laminectomies with C1-C5 posterior stabilization hardware. C4-5 and C5-6 ACDF. Degenerative Changes: Multilevel disc space narrowing. Multilevel neural foraminal narrowing, greates t in the mid cervical spine. No evidence of high-grade osseous spinal stenosis. Multilevel facet arth ropathy. Cervical Soft Tissues: No prevertebral soft tissue swelling. Partially visualized left apical pleural thickening/scarring. Vascular calcifications. Partially visualized right internal jugular catheter. IMPRESSION: BRAIN: Mild subcutaneous contusion left frontal scalp. No evidence of acute intracranial abnormality. C-SPINE: No evidence of acute osseous abnormality involving the cervical spine. Multilevel postoperative and degenerative changes as described. Electronically signed by: Serg Mejia DO (02/14/2022 9:50 AM) [facility]
[2022-02-14 13:22] LABS: % LYMPHS 3 % (24-48); % MONOS 12 % (0-10); % SEGS 85 % (35-66)
[2022-02-14 13:23] LABS: PLT ESTIMATE ADEQUATE (ADEQUATE)
== END 2022-02-14 10:40 | disposition home or self-care (01) ==
LOC: ER 08:02
DX: F03.90 Unspecified dementia, unspecified severity, without behavioral disturbance, psychotic disturbance, mood disturbance, and anxiety (principal); Z90.89 Acquired absence of other organs; Z85.118 Personal history of other malignant neoplasm of bronchus and lung; W19.XXXA Unspecified fall, initial encounter; Y93.89 Activity, other specified; Y92.89 Other specified places as the place of occurrence of the external cause; Y99.8 Other external cause status
CPT/HCPCS: 36415; 70450; 72125; 73030; 73502; 80053; 81001; 85007; 85025; 96372; 99285; J2060